=== PATIENT | female | born 1960 | race Caucasian/White ===

== ENCOUNTER → 2017-01-28 | Outpatient (CLI) | payer OTHER ==
--- NOTE | 2017-01-28 13:18 | REPMRS ---
Patient History The patient states she has not had a clinical breast exam in over a year. Patient is postmenopausal. Family history of breast cancer in paternal aunt at age 50 or over. Took hormonal contraceptives for 5 months. Digital Mammo Screening Bilat: January 28, 2017 - Exam #: [id number] Bilateral CC and MLO view(s) were taken. Technologist: Amira Lara, Technologist Prior study comparison: October 04, 2014, bilateral bilat screen digital mammo, performed at [facility] ([facility]). November 21, 2011, bilateral bilat screen digital mammo, performed at [facility]. FINDINGS: There are scattered fibroglandular densities. There has been no change in the appearance of the mammogram from the prior studies. There is a mild amount of residual fibroglandular tissue which is fairly symmetric. There is no interval development of dominant mass, architectural distortion, or clustered microcalcification suggestive of malignancy. ASSESSMENT: BI-RADS/ACR category 1 mammogram. Negative. Recommendation Routine screening mammogram in 1 year (for women over age 40). This mammogram was interpreted with the aid of an FDA-approved computer-aided dectection system. Electronically Signed By: Néstor William MD 01/28/17 0661
--- NOTE | 2017-01-28 13:30 | REP ---
Clinical: Lung screening. Technique: Axial noncontrast low-dose images using lung screening technique. Comparison: Chest CT dated 03/14/2006. Findings: Lung abdul are well-aerated minimal chronic scarring along the medial right middle lobe noted. There is a 4 mm noncalcified nodule abutting the left major fissure likely within the posterior aspect of the left upper lobe (image 51). No further consolidation, nodule or mass lesion. No pleural effusion. No pneumothorax. Mediastinum is grossly normal. Tracheobronchial tree is patent. Musculoskeletal structures are intact. Impression: Lung-RADS category II with 4 mm probably benign density in the posterior left upper lobe. 12-month follow-up examination is recommended. Signed by Dennys Zhu MD 01/28/2017 01:21 P
== END ==
LOC: M RAD 12:04
PROVIDERS: ATTEND Family Medicine
DX: Z12.31 Encounter for screening mammogram for malignant neoplasm of breast (principal)

== ENCOUNTER 2017-05-11 10:27 | Emergency (ER) | payer OTHER ==
[~2017-05-11] VITALS: Ht 160 cm; Wt 85.1 kg
[2017-05-11 10:28] VITALS: BP 179/82
[2017-05-11] MEDS ORDERED: METO1TAB7 PO (10:47)
[2017-05-11] MEDS ORDERED: AMLO5TAB2 PO (10:47)
[2017-05-11] MEDS ORDERED: ATOR1TAB19 PO (10:47)
[2017-05-11] MEDS ORDERED: OMEP40CA2 (10:47)
[2017-05-11] MEDS ORDERED: IBUP-1022 PO (10:47)
[2017-05-11] MEDS ORDERED: LOSA100T36 PO (10:47)
[2017-05-11] MEDS ORDERED: SERT-155 PO (10:47)
[2017-05-11] MEDS ORDERED: NORCO, ANEXSIA 5/325MG TABLET (HYDROcodone/ACETAMINOPHEN) PO ONE (11:00)
--- NOTE | 2017-05-11 11:30 | REP ---
Clinical: Pain and swelling . Technique: William scale and color Doppler evaluation using linear high frequency transducer. Findings: Ultrasound examination of the left lower extremity deep venous structures from the common femoral vein to the popliteal vein demonstrates normal compressibility flow and wave patterns in response to respiration and augmentation. There is no evidence for deep venous thrombosis. Impression: No evidence for deep venous thrombosis. Signed by Dennys Zhu MD 05/11/2017 11:21 A
--- NOTE | 2017-05-11 11:55 | REP ---
Clinical: Nontraumatic hip pain. Technique: AP view of the pelvis with neutral and frog lateral views of the left hip. Findings: No acute fracture dislocation. Mild degenerative changes to the bilateral hips includes increase sclerosis to the acetabular roof with associated joint space narrowing and subtle marginal spurring. Small calcified loose bodies adjacent to the greater trochanter noted bilaterally. Impression: Moderate degenerative changes. No acute fracture dislocation. Signed by Dennys Zhu MD 05/11/2017 11:47 A
[2017-05-11] MEDS ORDERED: IBUP80TA PO (11:59)
[2017-05-11] MEDS ORDERED: NORCOTAB PO (11:59)
== END 2017-05-11 12:11 | disposition home or self-care (01) ==
LOC: M ED 11:00
DX: M16.12 Unilateral primary osteoarthritis, left hip (principal); S73.102A Unspecified sprain of left hip, initial encounter; I10 Essential (primary) hypertension; K21.9 Gastro-esophageal reflux disease without esophagitis; F32.9 Major depressive disorder, single episode, unspecified; F17.210 Nicotine dependence, cigarettes, uncomplicated; X58.XXXA Exposure to other specified factors, initial encounter; Y92.9 Unspecified place or not applicable; Y99.9 Unspecified external cause status; Y93.9 Activity, unspecified; Z79.899 Other long term (current) drug therapy

== ENCOUNTER → 2017-05-28 | Day surgery (SDC) | payer OTHER ==
[~2017-05-28] VITALS: Ht 160 cm; Wt 82.6 kg
[~2017-05-28] MED LIST: ACETAMINOPHEN 325 MG TAB PO PRN; AMLO5TAB2 PO; ATOR1TAB19 PO; AcetaZOLAMIDE 500 MG ER CAP PO ONE; BSS with VANC/TOB/EPI for EYE CASES IR ONE; CYCLOPENTOLATE 2% OPHTH SOLN 2ML BTL OS ONE; HEALON DUET (HEALON 10MG/ML 0.55ML & HEALON ENDOCOAT 30MG/ML 0.85ML) As Ordered ONE; IBUP-1022 PO; IBUP80TA PO; KETOROLAC 0.5% OPHTH SOLN OS ONE; LIDOCAINE 1% SDV 5 ML VIAL As Ordered ONE; LIDOCAINE 4% INJ 5 ML AMP OU ONE; LOSA100T36 PO; LR 500 ML IV ONE; METO1TAB7 PO; MIDAZOLAM INJ 2 MG/2 ML VIAL (J2250) As Ordered ONE; MOXIFLOXACIN IN BSS 0.25MG/0.25ML INTRACAMERAL INJ (OR EYE ONLY)(J2280) As Ordered ONE; NORCOTAB PO; OFLOXACIN 0.3 % (OCUFLOX) OPTH SOL 5ML OS ONE; OMEP40CA2; PHENYLEPHRINE 2.5% OPHTH SOL 2ML OS ONE; POVIDONE-IODINE 5% OPHTH PREP SOL 30ML As Ordered ONE; PROPARACAINE 0.5% OPHTH SOL 15ML OS PRN; SERT-155 PO; TRIAMCINOLONE PRES FR 40 MG/ML 1ML(TRIESENCE)(OR EYE ONLY)(J3300 PER 1MG) As Ordered ONE; TRIMETHOBENZAMIDE 300 MG CAP PO PRN; TROPICAMIDE 1% OPHTH SOLN 2ML OS ONE
[2017-05-28 14:55] VITALS: BP 173/80
== END | disposition home or self-care (01) ==
LOC: M SDC 11:39
PROVIDERS: ATTEND Ophthalmology
DX: H25.9 Unspecified age-related cataract (principal); I10 Essential (primary) hypertension; E78.5 Hyperlipidemia, unspecified; K21.9 Gastro-esophageal reflux disease without esophagitis; F41.9 Anxiety disorder, unspecified; G47.30 Sleep apnea, unspecified; Z79.899 Other long term (current) drug therapy; F17.210 Nicotine dependence, cigarettes, uncomplicated

== ENCOUNTER 2017-06-23 10:23 | Day surgery (SDC) | payer OTHER ==
[~2017-06-23] VITALS: Ht 160 cm; Wt 83.0 kg
[~2017-06-23 10:23] MED LIST changes: -AcetaZOLAMIDE 500 MG ER CAP PO ONE; +CYCLOPENTOLATE 2% OPHTH SOLN 2ML BTL OD ONE; -CYCLOPENTOLATE 2% OPHTH SOLN 2ML BTL OS ONE; -KETOROLAC 0.5% OPHTH SOLN OS ONE; +LIDOCAINE 3.5 % 1ML OPHTH TOPICAL GEL OU ONE; -LIDOCAINE 4% INJ 5 ML AMP OU ONE; -LR 500 ML IV ONE; +OFLOXACIN 0.3 % (OCUFLOX) OPTH SOL 5ML OD ONE; -OFLOXACIN 0.3 % (OCUFLOX) OPTH SOL 5ML OS ONE; +PHENYLEPHRINE 2.5% OPHTH SOL 2ML OD ONE; -PHENYLEPHRINE 2.5% OPHTH SOL 2ML OS ONE; +PROPARACAINE 0.5% OPHTH SOL 15ML OD PRN; -PROPARACAINE 0.5% OPHTH SOL 15ML OS PRN; -TRIMETHOBENZAMIDE 300 MG CAP PO PRN; +TROPICAMIDE 1% OPHTH SOLN 2ML OD ONE; -TROPICAMIDE 1% OPHTH SOLN 2ML OS ONE
[2017-06-23] MEDS ORDERED: LR 1,000 ML IV ONE (10:30)
[2017-06-23] MEDS ORDERED: LIDOCAINE 1% SDV 5 ML VIAL SQ PRN (10:45)
[2017-06-23] MEDS ORDERED: fentaNYL 100 MCG/2 ML INJECTION (J3010) As Ordered ONE (13:37)
[2017-06-23] MEDS ORDERED: AcetaZOLAMIDE 500 MG ER CAP As Ordered ONE (14:28)
[2017-06-23 14:30] VITALS: BP 186/83
[2017-06-23] MEDS ORDERED: TRIMETHOBENZAMIDE 300 MG CAP PO PRN (14:45)
[2017-06-23] MEDS ORDERED: AcetaZOLAMIDE 500 MG ER CAP PO ONE (14:45)
[2017-06-23] MEDS ORDERED: KETOROLAC 0.5% OPHTH SOLN OD ONE (14:45)
== END 2017-06-23 15:01 | disposition home or self-care (01) ==
LOC: M SDC 10:23
PROVIDERS: ATTEND Ophthalmology
DX: H25.11 Age-related nuclear cataract, right eye (principal); I10 Essential (primary) hypertension; E78.5 Hyperlipidemia, unspecified; K21.9 Gastro-esophageal reflux disease without esophagitis; F41.9 Anxiety disorder, unspecified; Z79.899 Other long term (current) drug therapy; G47.30 Sleep apnea, unspecified; F17.210 Nicotine dependence, cigarettes, uncomplicated

== ENCOUNTER → 2017-08-27 | Outpatient (CLI) | payer OTHER ==
[~2017-08-27] MED LIST changes: -ACETAMINOPHEN 325 MG TAB PO PRN; -BSS with VANC/TOB/EPI for EYE CASES IR ONE; -CYCLOPENTOLATE 2% OPHTH SOLN 2ML BTL OD ONE; -HEALON DUET (HEALON 10MG/ML 0.55ML & HEALON ENDOCOAT 30MG/ML 0.85ML) As Ordered ONE; -LIDOCAINE 1% SDV 5 ML VIAL As Ordered ONE; -LIDOCAINE 3.5 % 1ML OPHTH TOPICAL GEL OU ONE; -MIDAZOLAM INJ 2 MG/2 ML VIAL (J2250) As Ordered ONE; -MOXIFLOXACIN IN BSS 0.25MG/0.25ML INTRACAMERAL INJ (OR EYE ONLY)(J2280) As Ordered ONE; -OFLOXACIN 0.3 % (OCUFLOX) OPTH SOL 5ML OD ONE; -PHENYLEPHRINE 2.5% OPHTH SOL 2ML OD ONE; -POVIDONE-IODINE 5% OPHTH PREP SOL 30ML As Ordered ONE; -PROPARACAINE 0.5% OPHTH SOL 15ML OD PRN; -TRIAMCINOLONE PRES FR 40 MG/ML 1ML(TRIESENCE)(OR EYE ONLY)(J3300 PER 1MG) As Ordered ONE; -TROPICAMIDE 1% OPHTH SOLN 2ML OD ONE
--- NOTE | 2017-08-28 02:07 | REP ---
Clinical: Sacrococcygeal pain. Technique: Cephalic and caudal angled AP views with lateral view. Findings: The sacrum and coccyx appear relatively normal for age. No acute fracture / subluxation or significant degenerative changes are appreciated. No obvious congenital abnormality noted. Impression: Normal appearance of the sacrum and coccyx. Signed by Dennys Zhu MD 08/28/2017 01:59 A
== END ==
LOC: M RAD 11:01
PROVIDERS: ATTEND Family Medicine
DX: M53.3 Sacrococcygeal disorders, not elsewhere classified (principal)

== ENCOUNTER → 2017-12-22 | Outpatient (REF) | payer OTHER ==
[2017-12-25 14:17] LABS: HPV HYBRID CAPTURE II Negative (Negative)
== END ==
LOC: M LAB REF 08:03
DX: Z01.419 Encounter for gynecological examination (general) (routine) without abnormal findings (principal)

== ENCOUNTER → 2017-12-31 | Outpatient (CLI) | payer OTHER ==
[2017-12-31 13:40] LABS: BASO % 0.3 % (0.0-1.0); EOS # 0.1 10^3/uL (0.0-0.50); EOS % 1.7 % (0.0-3.0); HEMATOCRIT 40.8 % (36.0-47.0); HEMOGLOBIN 13.6 g/dl (12.0-16.0); IMMATURE GRANULOCYTE % 0.2 % (0-3.0); LYMPH # 3.1 10^3/uL (1.5-4.5); LYMPH % 47.6 % (24.0-44.0); MEAN CORPUSCULAR HEMOGLOBIN 28.9 pg (27.0-33.0); MEAN CORPUSCULAR HGB CONC 33.3 g/dl (32.0-36.5); MEAN CORPUSCULAR VOLUME 86.8 fl (80.0-96.0); MONO # 0.6 10^3/uL (0.0-0.8); NEUTROPHILS # 2.7 10^3/uL (1.8-7.7); NEUTROPHILS % 41.2 % (36.0-66.0); PLATELET COUNT, AUTOMATED 180 10^3/uL (150-450); RED CELL DISTRIBUTION WIDTH 12.9 % (11.5-14.5); WHITE BLOOD COUNT 6.6 10^3/uL (4.0-10.0)
[2017-12-31 13:58] LABS: TOTAL 25(OH) VITAMIN D 11.7 NG/ML (30.0-100.0)
[2017-12-31 15:03] LABS: ALBUMIN/GLOBULIN RATIO 1.11 (1.00-1.93); ALKALINE PHOSPHATASE 74 U/L (45-117); ALT/SGPT 21 U/L (12-78); ANION GAP 6 MEQ/L (8-16); AST/SGOT 15 U/L (7-37); BILIRUBIN,TOTAL 0.3 MG/DL (0.2-1.0); BLOOD UREA NITROGEN 14 MG/DL (7-18); CALCIUM LEVEL 9.4 MG/DL (8.5-10.1); CARBON DIOXIDE LEVEL 28 MEQ/L (21-32); CHLORIDE LEVEL 107 MEQ/L (98-107); CHOLESTEROL LEVEL 216 MG/DL (<200); CHOLESTEROL RISK RATIO 7.714 (<5); CREATININE FOR GFR 0.86 MG/DL (0.55-1.30); GLOMERULAR FILTRATION RATE > 60.0 (>51); GLUCOSE, FASTING 94 MG/DL (70-100); HDL CHOLESTEROL 28 MG/DL (>40); NON-HDL-C 188 MG/DL; SODIUM LEVEL 141 MEQ/L (136-145); TOTAL PROTEIN 7.6 GM/DL (6.4-8.2); TRIGLYCERIDES LEVEL 539 MG/DL (<150)
== END ==
LOC: M WUC 09:00
DX: E55.9 Vitamin D deficiency, unspecified (principal); I10 Essential (primary) hypertension
CPT/HCPCS: 84443

== ENCOUNTER → 2018-01-29 | Outpatient (CLI) | payer OTHER | LOC: M RAD 09:56 | DX: Z87.891 Personal history of nicotine dependence (principal); R91.8 Other nonspecific abnormal finding of lung field | CPT/HCPCS: G0297 ==

== ENCOUNTER → 2018-08-05 | Outpatient (CLI) | payer OTHER | LOC: M WUC 11:35 | DX: S16.1XXA Strain of muscle, fascia and tendon at neck level, initial encounter (principal); M50.222 Other cervical disc displacement at C5-C6 level; M50.223 Other cervical disc displacement at C6-C7 level; X58.XXXA Exposure to other specified factors, initial encounter; Y92.9 Unspecified place or not applicable | CPT/HCPCS: 72052 ==

== ENCOUNTER → 2018-08-21 | Outpatient (REF) | payer OTHER | LOC: M LAB REF 12:53 | DX: R35.0 Frequency of micturition (principal) | CPT/HCPCS: 87186 ==

== ENCOUNTER → 2018-10-07 | Outpatient (CLI) | payer OTHER | LOC: M RAD 08:58 | DX: R93.0 Abnormal findings on diagnostic imaging of skull and head, not elsewhere classified (principal); H71.02 Cholesteatoma of attic, left ear | CPT/HCPCS: 70480 ==

== ENCOUNTER → 2018-11-23 | Outpatient (CLI) | payer OTHER ==
[~2018-11-23] MED LIST changes: -AMLO5TAB2 PO; +AMLO5TAB6 PO; +AMOX875T2 PO; +DICL13PA TOP; +GABA-843 PO; -LOSA100T36 PO; +LOSA100T50 PO; +METO1TAB33 PO; +NICO21PAT TD; +OMEP40CA2 PO; +SERT50TA PO; +TIZA-208 PO; +VITA500055 PO
[2018-11-23 12:59] LABS: BASO % 0.5 % (0.0-1.0); EOS # 0.2 10^3/uL (0.0-0.50); EOS % 2.1 % (0.0-3.0); HEMATOCRIT 43.3 % (36.0-47.0); LYMPH # 3.3 10^3/uL (1.5-4.5); MEAN CORPUSCULAR HEMOGLOBIN 28.2 pg (27.0-33.0); MEAN CORPUSCULAR HGB CONC 32.3 g/dl (32.0-36.5); MEAN CORPUSCULAR VOLUME 87.1 fl (80.0-96.0); MONO # 0.7 10^3/uL (0.0-0.8); MONO % 7.8 % (0.0-5.0); NEUTROPHILS # 4.4 10^3/uL (1.8-7.7); NEUTROPHILS % 51.3 % (36.0-66.0); PLATELET COUNT, AUTOMATED 212 10^3/uL (150-450); RED BLOOD COUNT 4.97 10^6/uL (4.00-5.40); WHITE BLOOD COUNT 8.6 10^3/uL (4.0-10.0)
[2018-11-23 13:08] LABS: ALBUMIN 3.9 GM/DL (3.2-5.2); ALT/SGPT 20 U/L (12-78); BILIRUBIN,TOTAL 0.3 MG/DL (0.2-1.0); BLOOD UREA NITROGEN 16 MG/DL (7-18); CALCIUM LEVEL 9.1 MG/DL (8.5-10.1); CARBON DIOXIDE LEVEL 24 MEQ/L (21-32); CHLORIDE LEVEL 105 MEQ/L (98-107); CHOLESTEROL LEVEL 254 MG/DL (<200); CHOLESTEROL RISK RATIO 9.769 (<5); CREATININE FOR GFR 1.07 MG/DL (0.55-1.30); GLOMERULAR FILTRATION RATE 55.9 (>51); GLUCOSE, FASTING 98 MG/DL (70-100); HDL CHOLESTEROL 26 MG/DL (>40); NON-HDL-C 228 MG/DL; POTASSIUM SERUM 4.4 MEQ/L (3.5-5.1); SODIUM LEVEL 142 MEQ/L (136-145); TOTAL PROTEIN 7.5 GM/DL (6.4-8.2); TRIGLYCERIDES LEVEL 699 MG/DL (<150)
== END ==
LOC: M WUC 09:38
PROVIDERS: ATTEND Physician Assistant
DX: I10 Essential (primary) hypertension (principal)

== ENCOUNTER 2019-01-15 08:12 | Day surgery (SDC) | payer OTHER ==
[~2019-01-15] VITALS: Ht 160 cm; Wt 93.4 kg
[~2019-01-15 08:12] MED LIST changes: +DRIS50003 PO; +SIMV5TAB12 PO
[2019-01-15] MEDS ORDERED: LIDOCAINE W/EPINEPHRINE 1% 20ML VIAL As Ordered ONE (10:01)
[2019-01-15] MEDS ORDERED: METHYLENE BLUE 0.5% (5MG/ML) 10 ML AMP (PROVAYBLUE)(Q9968 PER 1MG) As Ordered ONE (10:01)
[2019-01-15] MEDS ORDERED: CIPRODEX OTIC SUSP 7.5ML As Ordered ONE (10:01)
[2019-01-15] MEDS ORDERED: OXYMETAZOLINE NASAL SPRAY (AFRIN) As Ordered ONE (10:02)
[2019-01-15] MEDS ORDERED: dexameTHASONE 4 MG/ML 1ML VIAL (J1100) As Ordered ONE ×2 (11:58→12:12)
[2019-01-15] MEDS ORDERED: LIDOCAINE 2% INJ 100 MG/5 ML SDV (FOR ANES.) As Ordered ONE (11:58)
[2019-01-15] MEDS ORDERED: MIDAZOLAM INJ 2 MG/2 ML VIAL (J2250) As Ordered ONE (11:58)
[2019-01-15] MEDS ORDERED: ONDANSETRON 4MG/2ML VIAL (J2405) As Ordered ONE (11:58)
[2019-01-15] MEDS ORDERED: PROPOFOL 200 MG/20 ML VIAL As Ordered ONE (11:58)
[2019-01-15] MEDS ORDERED: ROCURONIUM BROMIDE 50 MG/5 ML VIAL As Ordered ONE ×3 (11:58→12:26)
[2019-01-15] MEDS ORDERED: fentaNYL 250 MCG/5 ML INJECTION (J3010) As Ordered ONE (11:58)
[2019-01-15] MEDS ORDERED: ePHEDrine SULFATE 25 MG/5 ML(5MG/ML) SYRINGE As Ordered ONE (12:00)
[2019-01-15] MEDS ORDERED: fentaNYL 100 MCG/2 ML INJECTION (J3010) As Ordered ONE (12:26)
[2019-01-15] MEDS ORDERED: SUGAMMADEX SODIUM 500 MG/5 ML VIAL (BRIDION) As Ordered ONE (12:29)
[2019-01-15] MEDS ORDERED: fentaNYL 100 MCG/2 ML INJECTION (J3010) IV PRN (13:45)
[2019-01-15] MEDS ORDERED: HYDROMORPHONE HCL 0.5 MG/ 0.5 ML SYRINGE (J1170 PER 1) IV PRN (13:45)
[2019-01-15] MEDS ORDERED: LIDOCAINE VISCOUS 2% SOLN 15ML UDC As Ordered ONE (15:22)
--- NOTE | 2019-01-15 15:25 | RO ---
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 OPERATION PERFORMED 1. Micro suspension laryngoscopy with excision of large approximately 3-4 cm vallecular cyst primarily on the right side. 2. Shaving of the lingual tonsils utilizing the Coblator device. 3. Bilateral eustachian tube balloon dilation with the AERA Acclarent balloon device. 4. Bilateral myringotomy and tube placement with Paparella ventilation tubes. SURGEON: Dr. Cirilo Worley. GUITAR REPAIR TECHNICIAN: ANESTHESIA: General endotracheal tube. DESCRIPTION OF PROCEDURE: With the patient in supine position after being induced and intubated, prepped and draped in the usual fashion, the patient initially was prepped and draped for the eustachian tube balloon dilation. The nasal cavity was decongested with topical Afrin. A pediatric 30 degrees endoscope along with the AERA eustachian tube balloon device was utilized. The right torus tubarius was cannulated without difficulty. There was prominent tonsils of Chandler and some adenoid tissue present. The balloon was deployed to the yellow marking without resistance and then dilated to 12 cm 6 joules for 2 minutes. In a similar fashion the left side was also done transnasally as well. Once this was done, the patient was changed over to bilateral myringotomy and tube placement. Initially, the right side was done. The speculum was placed in the ear canal. An anterior superior incision was created and then a Paparella Type 1 ventilation tube was placed. It should be noted that there was weakness of the posterior superior area that had ballooned forward and these were decompressed. Ciprodex drops were placed. A cotton ball was placed in the meatal opening. In a similar fashion, left side anterior superior incision was made and suctioned and then the posterior superior ballooning of the tympanic membrane (TM) receded, and the tube was placed. Ciprodex drops were placed as well. At this point, attention then was drawn to turning her 90 degrees and sent for microsuspension laryngoscopy where a Kyler-Storz was placed to view the vallecula. There was a very large 3-4 cm soft vallecular cyst that had been seen previously. This was carefully dissected with the microlaryngeal scissors and alligator for retraction. Most of it was resected off and appeared to be mainly attached to the lingual surface of the epiglottis and in the base of the epiglottis but not anteriorly. Once this was dissected and cleared, there was a small rupture posterior, inferiorly, medially and this was cultured aerobic, anaerobic. The rest of the cyst was completely removed but was partially decompressed at this site. Then the wound was copiously irrigated. pledgets with Afrin were placed in the area. The patient then was changed over to a Jose Rafael mouth gag with a large grooved tongue blade where partial lingual tonsillectomy was done utilizing a Coblator EVAC 70 wand creating a grooved in the center. This was shave down the midline of the base of the tongue to create an area for her to channel and breathe. She tolerated this well. Cautery settings of 3 was used on the coag setting of the Coblator and coblation setting was 7. Once bleeding was controlled and the vallecula was evaluated, the Kyler scope was placed back in and any areas that required cauterization was done with the Kyler scope. At this point all bleeding had stopped the microscope which had been used with the Kyler after the patient had been placed in suspension was all removed after the laryngotracheal anesthesia was placed. At this point the patient was awakened, which I observed and there was no apneic episodes, just snoring. Also observing in the waiting area, the patient had rhythmic snoring with no apneic episodes without a mask. Estimated blood loss was approximately 5 mL. There was no complications.
[2019-01-15] MEDS ORDERED: LIDOCAINE VISCOUS 2% SOLN 15ML UDC MT PRN (15:30)
[2019-01-15 16:29] VITALS: BP 140/66
== END 2019-01-15 16:35 | disposition home or self-care (01) ==
LOC: M SDC 08:12
PROVIDERS: ATTEND Otolaryngology
DX: J38.7 Other diseases of larynx (principal); H69.93 Unspecified Eustachian tube disorder, bilateral; J35.1 Hypertrophy of tonsils; G47.33 Obstructive sleep apnea (adult) (pediatric); I10 Essential (primary) hypertension; M12.9 Arthropathy, unspecified; E78.2 Mixed hyperlipidemia; K21.9 Gastro-esophageal reflux disease without esophagitis; F17.210 Nicotine dependence, cigarettes, uncomplicated; L98.8 Other specified disorders of the skin and subcutaneous tissue; F41.9 Anxiety disorder, unspecified; F32.1 Major depressive disorder, single episode, moderate; R51 Headache; Z79.899 Other long term (current) drug therapy; Z78.0 Asymptomatic menopausal state; Z96.1 Presence of intraocular lens; Z98.41 Cataract extraction status, right eye; Z98.42 Cataract extraction status, left eye
CPT/HCPCS: 31535; 42870; 69436; 69799; 87070; 87075; 87076; 87077; 87186; 88305; J1100; J2250; J2405; J3010; Q9968

== ENCOUNTER → 2019-02-10 | Outpatient (CLI) | payer OTHER ==
[~2019-02-10] MED LIST changes: +HYDR-3715 PO; -NORCOTAB PO; +SERT-141 PO; -SERT50TA PO; -TIZA-208 PO; +TIZA4TAB4 PO
--- NOTE | 2019-02-10 13:46 | REP ---
RIGHT ANKLE, FOUR VIEWS: HISTORY: Pain. There is a nondisplaced fracture of the distal fibula. There is no dislocation. The joint space is normal in appearance. Soft tissue swelling is present. IMPRESSION: Nondisplaced fracture of the distal fibula. Electronically Signed by Rigo Yañez MD 02/10/2019 01:48 P
--- NOTE | 2019-02-10 13:56 | REP ---
RIGHT FOOT, FOUR VIEWS: HISTORY: Pain. There is no acute fracture or dislocation. There is narrowing of the first metatarsal phalangeal joint space. The remaining joint spaces are normal in appearance. Soft tissue swelling is present at the ankle. IMPRESSION: There is no acute fracture or dislocation. Electronically Signed by Rigo Yañez MD 02/10/2019 01:58 P
== END ==
LOC: M WUC 12:27
PROVIDERS: ATTEND Physician Assistant
DX: M25.571 Pain in right ankle and joints of right foot (principal)

== ENCOUNTER → 2019-02-22 | Outpatient (CLI) | payer OTHER ==
--- NOTE | 2019-02-22 11:02 | REP ---
Low-dose lung screening CT: Comparisons are 01/29/2018 and 01/28/2017. The study is performed without IV contrast. Images are presented at lung windowing only. There is a 4 mm nodule in the left lower lobe on image 54, unchanged from both prior studies. There is a faintly visible ground-glass density in the right lower lobe on image 68, unchanged from both prior studies. There is a faintly visible ground-glass density in the right lower lobe on image 79, unchanged from both prior studies. No new nodules or masses are identified. There are no infiltrates or effusions. Impression: The above the lesions are all category II lung lesions. The probability of malignancy is less than 1%. Depending there is factors, low-dose lung screening CT is recommended annually. Electronically Signed by Néstor Pradhan MD 02/22/2019 10:53 A
== END ==
LOC: M RAD 09:18
PROVIDERS: ATTEND Family Medicine
DX: D14.1 Benign neoplasm of larynx (principal); F17.210 Nicotine dependence, cigarettes, uncomplicated

== ENCOUNTER → 2019-06-29 | Outpatient (REF) | payer OTHER | LOC: M LAB REF 13:21 | PROVIDERS: ATTEND Physician Assistant | DX: R30.9 Painful micturition, unspecified (principal) ==

== ENCOUNTER → 2019-09-25 | Outpatient (CLI) | payer OTHER ==
[~2019-09-25] MED LIST changes: -OMEP40CA2; -OMEP40CA2 PO; +OMEP40CA97; +OMEP40CA97 PO; -SERT-155 PO; +SERT50TA29 PO
[2019-09-25 13:31] LABS: ALT/SGPT 21 U/L (12-78); BILIRUBIN,TOTAL 0.4 MG/DL (0.2-1.0); BLOOD UREA NITROGEN 20 MG/DL (7-18); CALCIUM LEVEL 9.5 MG/DL (8.8-10.2); CARBON DIOXIDE LEVEL 28 MEQ/L (21-32); CHLORIDE LEVEL 106 MEQ/L (98-107); CHOLESTEROL LEVEL 238 MG/DL (<200); CHOLESTEROL RISK RATIO 8.206 (<5); CREATININE FOR GFR 1.21 MG/DL (0.55-1.30); GLOMERULAR FILTRATION RATE 48.3 (>45); GLUCOSE, FASTING 105 MG/DL (70-100); HDL CHOLESTEROL 29 MG/DL (>40); NON-HDL-C 209 MG/DL; POTASSIUM SERUM 4.4 MEQ/L (3.5-5.1); SODIUM LEVEL 141 MEQ/L (136-145); TOTAL PROTEIN 7.5 GM/DL (6.4-8.2); TRIGLYCERIDES LEVEL 666 MG/DL (<150)
== END ==
LOC: M WUC 08:29
PROVIDERS: ATTEND Physician Assistant
DX: E78.2 Mixed hyperlipidemia (principal)

== ENCOUNTER → 2020-03-03 | Outpatient (CLI) | payer OTHER ==
--- NOTE | 2020-03-03 15:59 | REP ---
REASON FOR EXAM: Followup. Patient has history of tobacco abuse. All priors were reviewed, latest 02/22/2019, also, lung screening chest CT. Prior exam showed Lung-RADS category 2 nodules. As per the protocol, only lung window images were sent to the read station for interpretation. No new abnormal nodules, masses, or opacities have developed. The lung abdul are unchanged. Grossly, the mediastinum and pulmonary alison are unchanged. Grossly, the imaged upper abdomen and imaged osseous structures are unchanged. IMPRESSION: Stable CT chest. Lung-RADS category 2 exam. Electronically Signed by Beto Eaton DO 03/03/2020 04:03 P
== END ==
LOC: M RAD 10:26
PROVIDERS: ATTEND Family Medicine
DX: F17.210 Nicotine dependence, cigarettes, uncomplicated (principal); Z12.2 Encounter for screening for malignant neoplasm of respiratory organs

== ENCOUNTER → 2020-07-25 | Outpatient (CLI) | payer OTHER ==
[~2020-07-25] MED LIST changes: +AMLO1TAB24 PO; -AMLO5TAB6 PO
[2020-07-25 12:13] LABS: ALBUMIN 3.8 GM/DL (3.2-5.2); ALT/SGPT 26 U/L (12-78); BILIRUBIN,TOTAL 0.3 MG/DL (0.2-1.0); BLOOD UREA NITROGEN 15 MG/DL (7-18); CALCIUM LEVEL 9.2 MG/DL (8.8-10.2); CARBON DIOXIDE LEVEL 31 MEQ/L (21-32); CHLORIDE LEVEL 105 MEQ/L (98-107); CHOLESTEROL LEVEL 248 MG/DL (<200); CREATININE FOR GFR 1.25 MG/DL (0.55-1.30); GLOMERULAR FILTRATION RATE 46.4 (>45); GLUCOSE, FASTING 120 MG/DL (70-100); HDL CHOLESTEROL 31 MG/DL (>40); NON-HDL-C 217 MG/DL; POTASSIUM SERUM 4.9 MEQ/L (3.5-5.1); SODIUM LEVEL 138 MEQ/L (136-145); TOTAL PROTEIN 7.5 GM/DL (6.4-8.2); TRIGLYCERIDES LEVEL 655 MG/DL (<150)
== END ==
LOC: M WUC 08:09
PROVIDERS: ATTEND Physician Assistant Medical
DX: E78.2 Mixed hyperlipidemia (principal)

== ENCOUNTER → 2020-10-21 | Outpatient (CLI) | payer OTHER ==
--- NOTE | 2020-10-23 15:31 | SLEEPCENT ---
NOCTURNAL POLYSOMNOGRAPHY CPAP TITRATION DATE: 10/21/2020 ORDERED BY: Dinora Hawkins NP Nocturnal polysomnography was performed for the titration of pressure therapy in this patient with severe obstructive sleep apnea syndrome. For testing, the patient was fit with a ResMed AirFit F20 full face mask of medium size was used, 11 cm of water pressure were applied to the circuit, and the lights were extinguished. 8 hours and 17 minutes of data were reviewed. There were 283.5 minutes of sleep identified. Sleep latency was prolonged at 40.5 minutes. REM latency was prolonged at 276.5 minutes. Sleep architecture improved late in the study. Throughout most of the test severe fragmentation was seen. Overall sleep efficiency was 57.9%. The electrocardiogram showed a wandering baseline with a sinus rhythm with an average heart rate of 58 beats per minute. EEG showed fairly normal waveforms for wake and sleep. Persistent of respiratory events prompted an increase in CPAP pressure despite optimal mask fit and a minimal air leak. The patient was changed to a BiLevel device. Best sleep was seen at the very end of the study on an inspiratory pressure of 20 over expiratory pressure of 15 with which pressure, the patient slept through REM without respiratory event or oxygen desaturation. IMPRESSION: Obstructive sleep apnea syndrome (G47.33). RECOMMENDATION: Nightly use of pressure therapy via BiLevel device with inspiratory pressure 21 over expiratory pressure of 15. Dr. Lorenzo
== END ==
LOC: M SLEEP 20:00
PROVIDERS: ATTEND Nurse Practitioner Adult Health
DX: G47.33 Obstructive sleep apnea (adult) (pediatric) (principal)

== ENCOUNTER → 2020-11-06 | Outpatient (REF) | payer OTHER | LOC: M LAB REF 13:44 | PROVIDERS: ATTEND Ophthalmology | DX: D23.10 Other benign neoplasm of skin of unspecified eyelid, including canthus (principal) ==

== ENCOUNTER → 2021-01-17 | Outpatient (REF) | payer OTHER ==
[~2021-01-17] MED LIST changes: +GABA-282 PO; -GABA-843 PO
== END ==
LOC: M LAB REF 17:56
PROVIDERS: ATTEND Physician Assistant Medical
DX: Z12.4 Encounter for screening for malignant neoplasm of cervix (principal)

== ENCOUNTER → 2021-02-05 | Outpatient (CLI) | payer OTHER ==
--- NOTE | 2021-02-05 10:54 | REPMRS ---
Patient History The patient states she had a clinical breast exam in 01/2021 Patient is postmenopausal. Family history of breast cancer at age 50 or over in paternal aunt. Took hormonal contraceptives for 5 months. Digital Woman Screen Mammo: February 05, 2021 - Exam #: [id number] Bilateral CC and MLO view(s) were taken. Technologist: Gemma Segura, Technologist Prior study comparison: August 06, 2019, bilateral digital mammo screening bilat, performed at [facility]. January 29, 2018, bilateral digital mammo screening bilat, performed at [facility]. January 28, 2017, bilateral digital mammo screening bilat, performed at [facility]. FINDINGS: There are scattered fibroglandular densities. The Volpara volumetric breast density category is:B. There has been no change in the appearance of the mammogram from the prior studies. There is a mild amount of scattered fibroglandular density which is fairly symmetric. There is no interval development of dominant mass, architectural distortion, or grouped microcalcification suggestive of malignancy. 3-D tomosynthesis shows no additional findings. Assessment: BI-RADS/ACR category 1 mammogram. Negative Mammogram. Recommendation Routine screening mammogram of both breasts in 1 year (for women over age 40). This patient's [facility] Lifetime Breast Cancer Risk is estimated at 6.3 %. This mammogram was interpreted with the aid of an FDA-approved computer-aided dectection system. Electronically Signed By: Rodger Vega MD 02/05/21 0771
== END ==
LOC: M WHC 09:55
PROVIDERS: ATTEND Family Medicine
DX: Z12.31 Encounter for screening mammogram for malignant neoplasm of breast (principal); Z80.3 Family history of malignant neoplasm of breast; Z78.0 Asymptomatic menopausal state

== ENCOUNTER → 2021-03-26 | Outpatient (CLI) | payer OTHER ==
[2021-03-26 17:05] LABS: CALCIUM LEVEL 9.2 MG/DL (8.8-10.2); CREATININE FOR GFR 1.46 MG/DL (0.55-1.30); GLOMERULAR FILTRATION RATE 38.8 (>45); POTASSIUM SERUM 3.8 MEQ/L (3.5-5.1); THYROID STIMULATING HORMONE 1.25 uIU/ML (0.358-3.740)
[2021-03-26 17:38] LABS: HEMOGLOBIN A1c 6.3 %
== END ==
LOC: M WUC 14:26
PROVIDERS: ATTEND Nurse Practitioner Family
DX: R55 Syncope and collapse (principal)

== ENCOUNTER → 2021-04-13 | Outpatient (CLI) | payer OTHER ==
--- NOTE | 2021-04-13 09:48 | REP ---
INDICATION: NICOTINE DEPEND. COMPARISON: Multiple the latest 03/03/2020 TECHNIQUE: Axial noncontrast images from the thoracic inlet to the upper abdomen using low-dose lung screening technique (LDCT). As per the protocol only lung window images were sent to the read station for interpretation. FINDINGS: No new abnormal nodules, masses, or opacities have developed. Grossly, the mediastinum and pulmonary alison are unchanged. Grossly, the imaged upper abdomen and imaged osseous structures are unchanged. IMPRESSION: Stable lung rads category 2 low-dose screening CT examination of the lungs. <Electronically signed by Beto Eaton > 04/13/21 0930
== END ==
LOC: M RAD 09:25
PROVIDERS: ATTEND Nurse Practitioner Family
DX: Z12.2 Encounter for screening for malignant neoplasm of respiratory organs (principal); F17.210 Nicotine dependence, cigarettes, uncomplicated

== ENCOUNTER → 2021-05-11 | Outpatient (CLI) | payer OTHER ==
[~2021-05-11] MED LIST changes: +OMEP40CA4; +OMEP40CA4 PO; -OMEP40CA97; -OMEP40CA97 PO
--- NOTE | 2021-05-11 10:35 | REP ---
INDICATION: PAIN COMPARISON: None. TECHNIQUE: Upright view of the chest with supine and upright views of the abdomen and pelvis. FINDINGS: Frontal upright view of the chest demonstrates no acute cardiopulmonary process or free air below the diaphragm to suspect pneumoperitoneum. Supine and upright views of the abdomen and pelvis demonstrate nonspecific bowel gas pattern without obstruction or perforation. No organomegaly. No abnormal calcifications. Skeletal structures normal for age. IMPRESSION: Nonspecific bowel gas pattern. <Electronically signed by Dennys Zhu > 05/11/21 1031
[2021-05-11 11:32] LABS: BASO % 0.5 % (0.0-1.0); EOS % 0.3 % (0.0-3.0); HEMATOCRIT 38.3 % (36.0-47.0); HEMOGLOBIN 12.5 g/dl (12.0-15.5); LYMPH # 0.6 10^3/uL (1.5-5.0); LYMPH % 10.7 % (24.0-44.0); MEAN CORPUSCULAR HEMOGLOBIN 27.8 pg (27.0-33.0); MEAN CORPUSCULAR HGB CONC 32.6 g/dl (32.0-36.5); MEAN CORPUSCULAR VOLUME 85.3 fl (80.0-96.0); MONO # 0.5 10^3/uL (0.0-0.8); MONO % 7.9 % (2.0-8.0); NEUTROPHILS # 4.7 10^3/uL (1.5-8.5); NEUTROPHILS % 80.1 % (36.0-66.0); PLATELET COUNT, AUTOMATED 137 10^3/uL (150-450); RED BLOOD COUNT 4.49 10^6/uL (4.00-5.40); WHITE BLOOD COUNT 5.8 10^3/uL (4.0-10.0)
[2021-05-11 12:07] LABS: BILIRUBIN,TOTAL 0.6 MG/DL (0.2-1.0); CALCIUM LEVEL 8.6 MG/DL (8.8-10.2); CREATININE FOR GFR 1.63 MG/DL (0.55-1.30); TOTAL PROTEIN 7.4 GM/DL (6.4-8.2)
== END ==
LOC: M WUC 09:56
PROVIDERS: ATTEND Physician Assistant
DX: R10.84 Generalized abdominal pain (principal); Z20.828 Contact with and (suspected) exposure to other viral communicable diseases

== ENCOUNTER → 2021-05-28 | Outpatient (REF) | payer OTHER | LOC: M LAB REF 17:01 | PROVIDERS: ATTEND Internal Medicine Nephrology | DX: E83.42 Hypomagnesemia (principal) ==

== ENCOUNTER → 2021-06-12 | Outpatient (CLI) | payer OTHER ==
[~2021-06-12] MED LIST changes: +LOSA100T45 PO; -LOSA100T50 PO; +TIZA10TA PO; -TIZA4TAB4 PO
== END ==
LOC: M RAD 07:35
PROVIDERS: ATTEND Internal Medicine Nephrology
DX: N18.32 Chronic kidney disease, stage 3b (principal); I15.0 Renovascular hypertension

== ENCOUNTER → 2021-07-10 | Outpatient (REF) | payer OTHER ==
[~2021-07-10] MED LIST changes: -LOSA100T45 PO; +LOSA100T50 PO; -TIZA10TA PO; +TIZA4TAB4 PO
== END ==
LOC: M LAB REF 11:56
PROVIDERS: ATTEND Internal Medicine Nephrology
DX: E83.42 Hypomagnesemia (principal)

== ENCOUNTER → 2021-09-20 | Outpatient (CLI) | payer OTHER ==
[2021-09-20 14:27] LABS: HEMOGLOBIN A1c 6.2 %
[2021-09-20 14:50] LABS: ALBUMIN 3.9 GM/DL (3.2-5.2); ALT/SGPT 22 U/L (12-78); BILIRUBIN,TOTAL 0.4 MG/DL (0.2-1.0); BLOOD UREA NITROGEN 17 MG/DL (7-18); CARBON DIOXIDE LEVEL 28 MEQ/L (21-32); CHLORIDE LEVEL 107 MEQ/L (98-107); CHOLESTEROL LEVEL 256 MG/DL (<200); CHOLESTEROL RISK RATIO 10.666 (<5); CREATININE FOR GFR 1.52 MG/DL (0.55-1.30); GLOMERULAR FILTRATION RATE 36.9 (>45); GLUCOSE, FASTING 105 MG/DL (70-100); HDL CHOLESTEROL 24 MG/DL (>40); NON-HDL-C 232 MG/DL; POTASSIUM SERUM 4.3 MEQ/L (3.5-5.1); SODIUM LEVEL 139 MEQ/L (136-145); TOTAL PROTEIN 7.4 GM/DL (6.4-8.2); TRIGLYCERIDES LEVEL 919 MG/DL (<150)
== END ==
LOC: M WUC 09:55
PROVIDERS: ATTEND Nurse Practitioner Family
DX: I10 Essential (primary) hypertension (principal); E78.2 Mixed hyperlipidemia; R73.03 Prediabetes

== ENCOUNTER → 2021-12-11 | Outpatient (CLI) | payer OTHER ==
[~2021-12-11] MED LIST changes: +LOSA100T45 PO; -LOSA100T50 PO; +TIZA10TA PO; -TIZA4TAB4 PO
== END ==
LOC: M PLAIMG 11:16
PROVIDERS: ATTEND Nurse Practitioner Family
DX: J44.9 Chronic obstructive pulmonary disease, unspecified (principal)

== ENCOUNTER → 2022-02-22 | Outpatient (CLI) | payer OTHER | LOC: M WHC 10:45 | PROVIDERS: ATTEND Nurse Practitioner Family | DX: Z12.31 Encounter for screening mammogram for malignant neoplasm of breast (principal) ==

== ENCOUNTER → 2022-03-01 | Outpatient (CLI) | payer OTHER ==
[2022-03-01 12:54] LABS: BASO % 0.5 % (0.0-1.0); EOS # 0.2 10^3/uL (0.0-0.5); EOS % 1.8 % (0.0-3.0); HEMATOCRIT 37.7 % (36.0-47.0); HEMOGLOBIN 12.2 g/dl (12.0-15.5); LYMPH # 2.6 10^3/uL (1.5-5.0); LYMPH % 31.8 % (24.0-44.0); MEAN CORPUSCULAR HEMOGLOBIN 27.4 pg (27.0-33.0); MEAN CORPUSCULAR HGB CONC 32.4 g/dl (32.0-36.5); MEAN CORPUSCULAR VOLUME 84.7 fl (80.0-96.0); MONO # 0.8 10^3/uL (0.0-0.8); MONO % 10.1 % (2.0-8.0); NEUTROPHILS # 4.6 10^3/uL (1.5-8.5); NEUTROPHILS % 55.4 % (36.0-66.0); PLATELET COUNT, AUTOMATED 185 10^3/uL (150-450); RED BLOOD COUNT 4.45 10^6/uL (4.00-5.40); WHITE BLOOD COUNT 8.3 10^3/uL (4.0-10.0)
[2022-03-01 13:14] LABS: ALT/SGPT 23 U/L (12-78); BILIRUBIN,TOTAL 0.6 MG/DL (0.2-1.0); BLOOD UREA NITROGEN 23 MG/DL (7-18); CALCIUM LEVEL 9.3 MG/DL (8.8-10.2); CARBON DIOXIDE LEVEL 26 MEQ/L (21-32); CHLORIDE LEVEL 109 MEQ/L (98-107); CHOLESTEROL LEVEL 162 MG/DL (<200); CREATININE FOR GFR 1.46 MG/DL (0.55-1.30); FERRITIN 34 NG/ML (8-252); FREE T4 0.97 NG/DL (0.76-1.46); GLOMERULAR FILTRATION RATE 38.6 (>45); GLUCOSE, FASTING 90 MG/DL (70-100); HDL CHOLESTEROL 27 MG/DL (>40); IRON (FE) 57 UG/DL (50-170); NON-HDL-C 135 MG/DL; PERCENT SATURATION 14.4 % (13.2-45.0); SODIUM LEVEL 141 MEQ/L (136-145); TOTAL 25(OH) VITAMIN D 33.2 NG/ML (30.0-100.0); TOTAL IRON BINDING CAPACITY 397 UG/DL (250-450); TOTAL PROTEIN 7.4 GM/DL (6.4-8.2); TRIGLYCERIDES LEVEL 520 MG/DL (<150)
[2022-03-01 13:37] LABS: HEMOGLOBIN A1c 5.9 %
== END ==
LOC: M WUC 10:15
PROVIDERS: ATTEND Nurse Practitioner Family
DX: R53.83 Other fatigue (principal); I10 Essential (primary) hypertension; E78.2 Mixed hyperlipidemia; R73.03 Prediabetes

== ENCOUNTER → 2022-03-13 | Outpatient (CLI) | payer OTHER ==
[2022-03-13 20:23] LABS: ALBUMIN 4.2 GM/DL (3.2-5.2); CALCIUM LEVEL 10.1 MG/DL (8.8-10.2); CREATININE FOR GFR 1.42 MG/DL (0.55-1.30); GLOMERULAR FILTRATION RATE 39.9 (>45); PHOSPHORUS LEVEL 4.7 MG/DL (2.5-4.9); POTASSIUM SERUM 4.6 MEQ/L (3.5-5.1); URIC ACID 8.6 MG/DL (2.6-6.0)
== END ==
LOC: M WUC 10:39
PROVIDERS: ATTEND Physician Assistant
DX: M19.071 Primary osteoarthritis, right ankle and foot (principal); M79.671 Pain in right foot; M25.572 Pain in left ankle and joints of left foot

== ENCOUNTER → 2022-05-21 | Outpatient (REF) | payer OTHER ==
[2022-05-21 20:51] LABS: POTASSIUM SERUM 3.6 MEQ/L (3.5-5.1)
== END ==
LOC: M LAB REF 18:01
PROVIDERS: ATTEND Internal Medicine Nephrology
DX: I12.9 Hypertensive chronic kidney disease with stage 1 through stage 4 chronic kidney disease, or unspecified chronic kidney disease (principal); N28.1 Cyst of kidney, acquired; N18.32 Chronic kidney disease, stage 3b

== ENCOUNTER → 2022-08-30 | Outpatient (CLI) | payer OTHER ==
[2022-08-30 17:47] LABS: HEMOGLOBIN A1c 6.3 %
[2022-08-30 19:02] LABS: ALBUMIN 3.7 GM/DL (3.2-5.2); ALT/SGPT 16 U/L (12-78); BILIRUBIN,TOTAL 0.3 MG/DL (0.2-1.0); BLOOD UREA NITROGEN 25 MG/DL (7-18); CARBON DIOXIDE LEVEL 27 MEQ/L (21-32); CHLORIDE LEVEL 109 MEQ/L (98-107); CHOLESTEROL LEVEL 200 MG/DL (<200); CHOLESTEROL RISK RATIO 9.523 (<5); CREATININE FOR GFR 1.45 MG/DL (0.55-1.30); FREE T4 0.94 NG/DL (0.76-1.46); GLOMERULAR FILTRATION RATE 38.8 (>45); GLUCOSE, FASTING 99 MG/DL (70-100); HDL CHOLESTEROL 21 MG/DL (>40); NON-HDL-C 179 MG/DL; POTASSIUM SERUM 4.2 MEQ/L (3.5-5.1); SODIUM LEVEL 142 MEQ/L (136-145); TOTAL PROTEIN 7.3 GM/DL (6.4-8.2); TRIGLYCERIDES LEVEL 895 MG/DL (<150); URIC ACID 7.8 MG/DL (2.6-6.0)
== END ==
LOC: M WUC 14:01
PROVIDERS: ATTEND Nurse Practitioner Family
DX: I10 Essential (primary) hypertension (principal); E78.2 Mixed hyperlipidemia; R73.03 Prediabetes; M10.9 Gout, unspecified; G47.00 Insomnia, unspecified

== ENCOUNTER → 2022-10-10 | Outpatient (CLI) | payer OTHER | LOC: M RAD 07:25 | PROVIDERS: ATTEND Nurse Practitioner Family | DX: Z12.2 Encounter for screening for malignant neoplasm of respiratory organs (principal); F17.210 Nicotine dependence, cigarettes, uncomplicated ==

== ENCOUNTER → 2023-02-26 | Outpatient (REF) | payer OTHER ==
[2023-02-26 19:08] LABS: HEMOGLOBIN A1c 5.5 % (4.0-6.0)
== END ==
LOC: M LABWUC 16:23
PROVIDERS: ATTEND Nurse Practitioner Family
DX: R73.03 Prediabetes (principal)

== ENCOUNTER 2023-08-25 08:05 | Day surgery (SDC) | payer OTHER ==
[~2023-08-25] VITALS: Ht 160 cm; Wt 86.8 kg
[~2023-08-25 08:05] MED LIST changes: +ACET1TAB55 PO; +ALLO100T PO; +AMLO1TAB25 PO; +CETI-24 PO; +CIPR250T3 PO; +HYDR-3363 PO; +HYDR-3490 PO; +LIDOCAINE 2% 100MG/5ML SDV (FOR ANES.) As Ordered ONE; +LIVA2TAB PO; -LOSA100T45 PO; +LOSA100T46 PO; +METR-265 PO; +NS 1,000 ML IV ONE; +NYST-38 PO; +ZOLO100T PO; +propofoL 200 MG/20 ML VIAL As Ordered ONE
[2023-08-25] MEDS ORDERED: propofoL 200 MG/20 ML VIAL As Ordered ONE ×2 (09:40→10:00)
[2023-08-25] MEDS ORDERED: GLUCAGON INJ 1MG VIAL As Ordered ONE (09:55)
[2023-08-25 10:33] VITALS: BP 142/65; O2SAT 94
== END 2023-08-25 10:50 | disposition home or self-care (01) ==
LOC: M OPP 08:05
PROVIDERS: ATTEND Internal Medicine Gastroenterology
DX: Z12.11 Encounter for screening for malignant neoplasm of colon (principal); Z83.719 Family history of colon polyps, unspecified; K64.0 First degree hemorrhoids; K57.30 Diverticulosis of large intestine without perforation or abscess without bleeding; K58.9 Irritable bowel syndrome, unspecified; G47.30 Sleep apnea, unspecified; Z99.89 Dependence on other enabling machines and devices; Z79.02 Long term (current) use of antithrombotics/antiplatelets; Z79.52 Long term (current) use of systemic steroids; Z79.60 Long term (current) use of unspecified immunomodulators and immunosuppressants; Z79.83 Long term (current) use of bisphosphonates; Z79.899 Other long term (current) drug therapy
CPT/HCPCS: 45378; J1610

== ENCOUNTER → 2023-09-17 | Outpatient (REF) | payer OTHER ==
[~2023-09-17] MED LIST changes: -LIDOCAINE 2% 100MG/5ML SDV (FOR ANES.) As Ordered ONE; -NS 1,000 ML IV ONE; -propofoL 200 MG/20 ML VIAL As Ordered ONE
[2023-09-17 14:26] LABS: BASO # 0.1 10^3/uL (0.0-0.2); BASO % 0.6 % (0.0-1.0); EOS # 0.3 10^3/uL (0.0-0.5); EOS % 2.4 % (0.0-3.0); HEMATOCRIT 42.8 % (36.0-47.0); HEMOGLOBIN 13.4 g/dl (12.0-15.5); LYMPH # 4.5 10^3/uL (1.5-5.0); LYMPH % 43.3 % (24.0-44.0); MEAN CORPUSCULAR HEMOGLOBIN 27.1 pg (27.0-33.0); MEAN CORPUSCULAR HGB CONC 31.3 g/dl (32.0-36.5); MEAN CORPUSCULAR VOLUME 86.5 fl (80.0-96.0); MONO # 0.6 10^3/uL (0.0-0.8); MONO % 5.7 % (2.0-8.0); NEUTROPHILS % 47.4 % (36.0-66.0); PLATELET COUNT, AUTOMATED 244 10^3/uL (150-450); RED BLOOD COUNT 4.95 10^6/uL (4.00-5.40); WHITE BLOOD COUNT 10.5 10^3/uL (4.0-10.0)
[2023-09-17 14:41] LABS: HEMOGLOBIN A1c 5.7 % (4.0-6.0)
[2023-09-17 14:59] LABS: CREATININE, URINE 207.8 MG/DL; MAU/CREAT RATIO 4.3 MCG/MG (0.0-30.0)
[2023-09-17 15:00] LABS: ALBUMIN 4.2 G/DL (3.2-5.2); ALKALINE PHOSPHATASE 95 U/L (46-116); ALT/SGPT 13 U/L (7.0-40); AST/SGOT 15 U/L (<34); BILIRUBIN,TOTAL 0.2 MG/DL (0.3-1.2); BLOOD UREA NITROGEN 28 MG/DL (9-23); CALCIUM LEVEL 9.9 MG/DL (8.3-10.6); CARBON DIOXIDE LEVEL 26 MMOL/L (20-31); CHLORIDE LEVEL 105 MMOL/L (98-107); CHOLESTEROL LEVEL 187 MG/DL (<200); CHOLESTEROL RISK RATIO 7.48 (<5); CREATININE FOR GFR 1.59 MG/DL (0.55-1.30); GLOMERULAR FILTRATION RATE 34.8 (>45); GLUCOSE, FASTING 104 MG/DL (74-106); POTASSIUM SERUM 4.6 MMOL/L (3.5-5.1); SODIUM LEVEL 138 MMOL/L (136-145); TOTAL PROTEIN 7.6 G/DL (5.7-8.2); TRIGLYCERIDES LEVEL 607 MG/DL (<150); URIC ACID 8.6 MG/DL (3.1-7.8)
== END ==
LOC: M LABWUC 12:26
PROVIDERS: ATTEND Nurse Practitioner Family
DX: I10 Essential (primary) hypertension (principal); E78.2 Mixed hyperlipidemia; R73.03 Prediabetes; M10.9 Gout, unspecified

== ENCOUNTER 2023-10-30 08:31 | Inpatient (IN) | payer MEDICARE, OTHER ==
[~2023-10-30] VITALS: Ht 160 cm; Wt 88.0 kg
[2023-10-30] MEDS ORDERED: NYST1POW9 TOP (08:51)
[2023-10-30] MEDS ORDERED: FENO48TA8 PO (08:51)
[2023-10-30] MEDS ORDERED: MOME0.1C3 TOP (08:51)
[2023-10-30] MEDS ORDERED: LORazepam 2 MG/ML 1ML VIAL IV STA (09:07)
[2023-10-30] MEDS: NS 1,000 ML IV SCH ×2 (09:50→19:51)
[2023-10-30 10:00] LABS: BASO % 0.2 % (0.0-1.0); EOS # 0.1 10^3/uL (0.0-0.5); EOS % 0.8 % (0.0-3.0); HEMATOCRIT 37.5 % (36.0-47.0); HEMOGLOBIN 12.5 g/dl (12.0-15.5); LYMPH % 19.6 % (24.0-44.0); MEAN CORPUSCULAR HEMOGLOBIN 27.2 pg (27.0-33.0); MEAN CORPUSCULAR HGB CONC 33.3 g/dl (32.0-36.5); MEAN CORPUSCULAR VOLUME 81.7 fl (80.0-96.0); MONO # 0.8 10^3/uL (0.0-0.8); MONO % 7.6 % (2.0-8.0); NEUTROPHILS # 7.3 10^3/uL (1.5-8.5); NEUTROPHILS % 71.4 % (36.0-66.0); PLATELET COUNT, AUTOMATED 192 10^3/uL (150-450); RED BLOOD COUNT 4.59 10^6/uL (4.00-5.40); WHITE BLOOD COUNT 10.2 10^3/uL (4.0-10.0)
[2023-10-30 10:14] LABS: CALCIUM LEVEL 9.8 MG/DL (8.3-10.6); CREATININE FOR GFR 1.85 MG/DL (0.55-1.30); GLOMERULAR FILTRATION RATE 29.2 (>45)
[2023-10-30] MEDS ORDERED: fentaNYL 100 MCG/2 ML INJECTION IV ONE (10:25)
[2023-10-30] MEDS ORDERED: NS 1,000 ML IV ONE (10:25)
[2023-10-30] MEDS: GASTROGRAFIN SOLUTION 30ML PO SCH ×2 (11:40→11:41)
[2023-10-30] MEDS ORDERED: PIPERACILLIN/TAZOBACTAM SOD 4.5 GM in D5W MINI-BAG PLUS 50 ML IV ONE (14:15)
[2023-10-30] MEDS ORDERED: MORPHINE 4 MG/ML 1ML VIAL IV PRN (15:20)
[2023-10-30] MEDS ORDERED: MED REC IN PROGRESS XX SCH (16:00)
[2023-10-30] MEDS ORDERED: ACETAMINOPHEN *IV* 1,000 MG in IV 1 EA IV ONE (16:45)
[2023-10-30 16:55] VITALS: BP 120/62; TEMP 98.6; O2SAT 95
[2023-10-30 17:00] LABS: C REACTIVE PROTEIN QUANTITATIV 7.7 MG/DL (<1.0); MAGNESIUM LEVEL 1.5 MG/DL (1.8-2.4)
[2023-10-30 17:01] LABS: ALBUMIN 3.2 G/DL (3.2-5.2); ALKALINE PHOSPHATASE 76 U/L (46-116); ALT/SGPT < 9 U/L (7.0-40); AST/SGOT 11 U/L (<34); BILIRUBIN,TOTAL 0.4 MG/DL (0.3-1.2); BLOOD UREA NITROGEN 29 MG/DL (9-23); CARBON DIOXIDE LEVEL 23 MMOL/L (20-31); CHLORIDE LEVEL 105 MMOL/L (98-107); CREATININE FOR GFR 1.67 MG/DL (0.55-1.30); GLOMERULAR FILTRATION RATE 32.9 (>45); GLUCOSE, FASTING 97 MG/DL (74-106); POTASSIUM SERUM 4.1 MMOL/L (3.5-5.1); SODIUM LEVEL 135 MMOL/L (136-145); TOTAL PROTEIN 6.7 G/DL (5.7-8.2)
[2023-10-30] MEDS ORDERED: ONDANSETRON 4MG 2ML VIAL IV PRN (17:05)
[2023-10-30] MEDS ORDERED: FENO54TA2 PO (17:20)
[2023-10-30] MEDS ORDERED: HOME MED LIST COMPLETE! XX SCH (17:25)
[2023-10-30] MEDS: PANTOPRAZOLE 40MG VIAL IV SCH (18:00)
[2023-10-30] MEDS: NICOTINE 21MG/24HR 1 EA TRANSDERMAL TD SCH (18:00)
[2023-10-30 19:38] VITALS: BP 130/61; TEMP 98.5; O2SAT 94
[2023-10-30] MEDS: HEPARIN SOD (PORCINE) 5000UNITS/ML 1ML VIAL/SYRINGE SC SCH (21:52)
[2023-10-30] MEDS: PIPERACILLIN/TAZOBACTAM SOD 4.5 GM in D5W MINI-BAG PLUS 50 ML IV SCH (22:52)
[2023-10-30] MEDS: MORPHINE 2 MG/ML 1ML VIAL IV PRN (22:53)
[2023-10-30 22:58] VITALS: BP 134/60; TEMP 98.6; O2SAT 96
[2023-10-31 04:14] VITALS: BP 124/65; TEMP 97.2; O2SAT 96
[2023-10-31] MEDS: NS 1,000 ML IV SCH ×2 (04:35→17:45)
[2023-10-31 05:38] LABS: BASO % 0.1 % (0.0-1.0); EOS # 0.1 10^3/uL (0.0-0.5); EOS % 1.2 % (0.0-3.0); HEMATOCRIT 31.6 % (36.0-47.0); LYMPH # 1.3 10^3/uL (1.5-5.0); LYMPH % 19.8 % (24.0-44.0); MEAN CORPUSCULAR HEMOGLOBIN 26.9 pg (27.0-33.0); MEAN CORPUSCULAR HGB CONC 32.9 g/dl (32.0-36.5); MEAN CORPUSCULAR VOLUME 81.7 fl (80.0-96.0); MONO # 0.6 10^3/uL (0.0-0.8); MONO % 8.4 % (2.0-8.0); NEUTROPHILS # 4.7 10^3/uL (1.5-8.5); NEUTROPHILS % 70.2 % (36.0-66.0); PLATELET COUNT, AUTOMATED 163 10^3/uL (150-450); RED BLOOD COUNT 3.87 10^6/uL (4.00-5.40); WHITE BLOOD COUNT 6.7 10^3/uL (4.0-10.0)
[2023-10-31 05:44] LABS: HEMOGLOBIN 10.4 g/dl (12.0-15.5)
[2023-10-31 06:03] LABS: CALCIUM LEVEL 8.6 MG/DL (8.3-10.6); CREATININE FOR GFR 1.61 MG/DL (0.55-1.30); GLOMERULAR FILTRATION RATE 34.3 (>45); MAGNESIUM LEVEL 1.7 MG/DL (1.8-2.4); POTASSIUM SERUM 4.1 MMOL/L (3.5-5.1)
[2023-10-31] MEDS: PIPERACILLIN/TAZOBACTAM SOD 4.5 GM in D5W MINI-BAG PLUS 50 ML IV SCH ×3 (06:11→21:53)
[2023-10-31 08:00] VITALS: BP_SYST 123; BP_SYST 138; BP_DIAS 58; BP_DIAS 65; TEMP 96.4; TEMP 97.8; O2SAT 93; O2SAT 96
[2023-10-31] MEDS ORDERED: MAG SULF 1GM/100ML (MAG RUN) 1 GM in IV 1 EA IV ONE (08:00)
[2023-10-31] MEDS: NYSTATIN 100,000 UNITS/GM TOPICAL PWD 15GM TOP SCH ×2 (09:00→21:00)
[2023-10-31] MEDS ORDERED: METOPROLOL SUCC (TopROL XL) 100MG *XL* TAB PO SCH (09:00)
[2023-10-31] MEDS: HEPARIN SOD (PORCINE) 5000UNITS/ML 1ML VIAL/SYRINGE SC SCH ×2 (09:20→21:49)
[2023-10-31] MEDS: PANTOPRAZOLE 40MG VIAL IV SCH (09:20)
[2023-10-31] MEDS: OMEPRAZOLE 20MG CAP PO SCH (09:20)
[2023-10-31] MEDS: NICOTINE 21MG/24HR 1 EA TRANSDERMAL TD SCH (09:21)
[2023-10-31] MEDS: SERTRALINE 100 MG TAB PO SCH (09:21)
[2023-10-31] MEDS: CETIRIZINE (ZyrTEC) 10 MG TAB PO SCH (09:21)
[2023-10-31] MEDS: MORPHINE 2 MG/ML 1ML VIAL IV PRN (09:34)
[2023-10-31] MEDS: KETOROLAC 30 MG/ML 1ML VIAL IV SCH ×2 (11:42→21:49)
[2023-10-31 12:00] VITALS: BP 150/65; TEMP 97.4; O2SAT 96
[2023-10-31 16:00] VITALS: BP 135/63; TEMP 96.4; O2SAT 95
[2023-10-31] MEDS: PERCOCET 5MG/325MG TAB PO PRN (21:49)
[2023-10-31 22:00] VITALS: BP 148/70; TEMP 98.1; O2SAT 96
[2023-10-31 23:53] VITALS: BP 130/61; TEMP 98.3; O2SAT 97
[2023-11-01] MEDS: NS 1,000 ML IV SCH ×3 (00:34→21:06)
[2023-11-01 04:00] VITALS: BP 162/70; TEMP 97.5; O2SAT 95
[2023-11-01] MEDS: PIPERACILLIN/TAZOBACTAM SOD 4.5 GM in D5W MINI-BAG PLUS 50 ML IV SCH ×3 (06:06→21:07)
[2023-11-01 08:00] VITALS: BP 143/60; TEMP 97.8; O2SAT 94
[2023-11-01 09:01] LABS: BASO % 0.4 % (0.0-1.0); EOS # 0.1 10^3/uL (0.0-0.5); EOS % 2.2 % (0.0-3.0); HEMATOCRIT 29.5 % (36.0-47.0); HEMOGLOBIN 9.7 g/dl (12.0-15.5); LYMPH # 1.1 10^3/uL (1.5-5.0); LYMPH % 21.1 % (24.0-44.0); MEAN CORPUSCULAR HEMOGLOBIN 27.3 pg (27.0-33.0); MEAN CORPUSCULAR HGB CONC 32.9 g/dl (32.0-36.5); MEAN CORPUSCULAR VOLUME 83.1 fl (80.0-96.0); MONO # 0.5 10^3/uL (0.0-0.8); MONO % 9.4 % (2.0-8.0); NEUTROPHILS # 3.4 10^3/uL (1.5-8.5); NEUTROPHILS % 65.9 % (36.0-66.0); PLATELET COUNT, AUTOMATED 205 10^3/uL (150-450); RED BLOOD COUNT 3.55 10^6/uL (4.00-5.40); WHITE BLOOD COUNT 5.1 10^3/uL (4.0-10.0)
[2023-11-01 09:36] LABS: CALCIUM LEVEL 8.6 MG/DL (8.3-10.6); CREATININE FOR GFR 1.64 MG/DL (0.55-1.30); GLOMERULAR FILTRATION RATE 33.6 (>45); MAGNESIUM LEVEL 1.8 MG/DL (1.8-2.4); POTASSIUM SERUM 4.4 MMOL/L (3.5-5.1)
[2023-11-01] MEDS: PANTOPRAZOLE 40MG VIAL IV SCH (09:49)
[2023-11-01] MEDS: OMEPRAZOLE 20MG CAP PO SCH (09:49)
[2023-11-01] MEDS: HEPARIN SOD (PORCINE) 5000UNITS/ML 1ML VIAL/SYRINGE SC SCH ×2 (09:49→21:05)
[2023-11-01] MEDS: allopurinoL 100 MG TAB PO SCH (09:50)
[2023-11-01] MEDS: SERTRALINE 100 MG TAB PO SCH (09:50)
[2023-11-01] MEDS: NICOTINE 21MG/24HR 1 EA TRANSDERMAL TD SCH (09:50)
[2023-11-01] MEDS: CETIRIZINE (ZyrTEC) 10 MG TAB PO SCH (09:50)
[2023-11-01] MEDS: KETOROLAC 30 MG/ML 1ML VIAL IV SCH ×2 (09:59→21:05)
[2023-11-01] MEDS: NYSTATIN 100,000 UNITS/GM TOPICAL PWD 15GM TOP SCH ×2 (11:44→21:00)
[2023-11-01 12:00] VITALS: BP 146/62; TEMP 98.4
[2023-11-01 12:56] VITALS: O2SAT 96
[2023-11-01 20:10] VITALS: BP 172/70; TEMP 98.3; O2SAT 96
[2023-11-01 21:05] VITALS: BP 160/72
[2023-11-01] MEDS: PERCOCET 5MG/325MG TAB PO PRN (21:05)
[2023-11-02] MEDS: PERCOCET 5MG/325MG TAB PO PRN (01:39)
[2023-11-02 04:20] VITALS: BP 161/72; TEMP 97.3; O2SAT 96
[2023-11-02 05:39] LABS: BASO % 0.2 % (0.0-1.0); EOS # 0.2 10^3/uL (0.0-0.5); EOS % 2.6 % (0.0-3.0); HEMATOCRIT 27.5 % (36.0-47.0); LYMPH # 1.4 10^3/uL (1.5-5.0); LYMPH % 22.3 % (24.0-44.0); MEAN CORPUSCULAR HEMOGLOBIN 27.3 pg (27.0-33.0); MEAN CORPUSCULAR HGB CONC 32.7 g/dl (32.0-36.5); MEAN CORPUSCULAR VOLUME 83.3 fl (80.0-96.0); MONO # 0.6 10^3/uL (0.0-0.8); MONO % 10.5 % (2.0-8.0); NEUTROPHILS # 3.9 10^3/uL (1.5-8.5); NEUTROPHILS % 63.9 % (36.0-66.0); PLATELET COUNT, AUTOMATED 213 10^3/uL (150-450); WHITE BLOOD COUNT 6.1 10^3/uL (4.0-10.0)
[2023-11-02] MEDS: PIPERACILLIN/TAZOBACTAM SOD 4.5 GM in D5W MINI-BAG PLUS 50 ML IV SCH ×3 (06:00→23:15)
[2023-11-02 06:01] LABS: CALCIUM LEVEL 8.4 MG/DL (8.3-10.6); CREATININE FOR GFR 1.61 MG/DL (0.55-1.30); GLOMERULAR FILTRATION RATE 34.3 (>45); MAGNESIUM LEVEL 1.6 MG/DL (1.8-2.4); POTASSIUM SERUM 4.4 MMOL/L (3.5-5.1)
[2023-11-02 08:00] VITALS: BP 153/78; TEMP 98; O2SAT 98
[2023-11-02] MEDS ORDERED: MAG SULF 1GM/100ML (MAG RUN) 1 GM in IV 1 EA IV ONE (08:00)
[2023-11-02] MEDS: PANTOPRAZOLE 40MG VIAL IV SCH (08:26)
[2023-11-02] MEDS: HEPARIN SOD (PORCINE) 5000UNITS/ML 1ML VIAL/SYRINGE SC SCH ×2 (08:26→21:04)
[2023-11-02] MEDS: NICOTINE 21MG/24HR 1 EA TRANSDERMAL TD SCH (08:29)
[2023-11-02] MEDS: OMEPRAZOLE 20MG CAP PO SCH (08:30)
[2023-11-02] MEDS: allopurinoL 100 MG TAB PO SCH (08:30)
[2023-11-02] MEDS: NYSTATIN 100,000 UNITS/GM TOPICAL PWD 15GM TOP SCH ×2 (08:30→21:04)
[2023-11-02] MEDS: CETIRIZINE (ZyrTEC) 10 MG TAB PO SCH (08:31)
[2023-11-02] MEDS: SERTRALINE 100 MG TAB PO SCH (08:31)
[2023-11-02] MEDS: NS 1,000 ML IV SCH ×2 (08:33→21:39)
[2023-11-02] MEDS: KETOROLAC 30 MG/ML 1ML VIAL IV SCH ×2 (10:16→23:15)
[2023-11-02 16:00] VITALS: BP 156/72; TEMP 97.6; O2SAT 94
[2023-11-02 21:30] VITALS: BP 168/75; TEMP 99; O2SAT 95
[2023-11-03] MEDS: NS 1,000 ML IV SCH (03:10)
[2023-11-03 04:08] VITALS: BP 168/80; TEMP 97.4; O2SAT 96
[2023-11-03 06:14] LABS: BASO % 0.4 % (0.0-1.0); EOS # 0.2 10^3/uL (0.0-0.5); EOS % 3.1 % (0.0-3.0); HEMATOCRIT 27.3 % (36.0-47.0); HEMOGLOBIN 8.8 g/dl (12.0-15.5); LYMPH # 1.4 10^3/uL (1.5-5.0); LYMPH % 26.5 % (24.0-44.0); MEAN CORPUSCULAR HEMOGLOBIN 26.4 pg (27.0-33.0); MEAN CORPUSCULAR HGB CONC 32.2 g/dl (32.0-36.5); MONO # 0.5 10^3/uL (0.0-0.8); MONO % 10.1 % (2.0-8.0); NEUTROPHILS % 59.1 % (36.0-66.0); PLATELET COUNT, AUTOMATED 232 10^3/uL (150-450); RED BLOOD COUNT 3.33 10^6/uL (4.00-5.40); WHITE BLOOD COUNT 5.1 10^3/uL (4.0-10.0)
[2023-11-03 06:32] LABS: CALCIUM LEVEL 8.6 MG/DL (8.3-10.6); CREATININE FOR GFR 1.57 MG/DL (0.55-1.30); GLOMERULAR FILTRATION RATE 35.3 (>45); MAGNESIUM LEVEL 1.7 MG/DL (1.8-2.4)
[2023-11-03] MEDS: PIPERACILLIN/TAZOBACTAM SOD 4.5 GM in D5W MINI-BAG PLUS 50 ML IV SCH ×3 (06:51→22:50)
[2023-11-03] MEDS ORDERED: MAG SULF 1GM/100ML (MAG RUN) 1 GM in IV 1 EA IV ONE (08:00)
[2023-11-03] MEDS: NICOTINE 21MG/24HR 1 EA TRANSDERMAL TD SCH (08:40)
[2023-11-03] MEDS: CETIRIZINE (ZyrTEC) 10 MG TAB PO SCH (08:41)
[2023-11-03] MEDS: OMEPRAZOLE 20MG CAP PO SCH (08:41)
[2023-11-03] MEDS: SERTRALINE 100 MG TAB PO SCH (08:41)
[2023-11-03] MEDS: allopurinoL 100 MG TAB PO SCH (08:41)
[2023-11-03] MEDS: PANTOPRAZOLE 40MG VIAL IV SCH (08:41)
[2023-11-03] MEDS: HEPARIN SOD (PORCINE) 5000UNITS/ML 1ML VIAL/SYRINGE SC SCH ×2 (08:41→20:35)
[2023-11-03] MEDS: NYSTATIN 100,000 UNITS/GM TOPICAL PWD 15GM TOP SCH ×2 (08:42→20:35)
[2023-11-03 09:25] VITALS: BP 177/84; TEMP 98; O2SAT 96
[2023-11-03] MEDS: KETOROLAC 30 MG/ML 1ML VIAL IV SCH ×2 (11:54→22:50)
[2023-11-03 12:00] VITALS: BP 170/77; TEMP 97.5; O2SAT 97
[2023-11-03 20:36] VITALS: BP 180/82; TEMP 98.8; O2SAT 95
[2023-11-03] MEDS ORDERED: **hydrALAZINE HCL** 25 MG TAB PO ONE (21:30)
[2023-11-03 22:52] VITALS: BP 165/89; TEMP 98.1; O2SAT 95
[2023-11-04] VITALS (8 sets, daily range): BP systolic 148–186; BP diastolic 62–83; TEMP 97.7–98.6; O2SAT 94–99
[2023-11-04] MEDS ORDERED: **hydrALAZINE HCL** 25 MG TAB PO ONE (04:55)
[2023-11-04 05:56] LABS: BASO % 0.2 % (0.0-1.0); EOS # 0.2 10^3/uL (0.0-0.5); EOS % 2.8 % (0.0-3.0); HEMATOCRIT 28.9 % (36.0-47.0); HEMOGLOBIN 9.3 g/dl (12.0-15.5); LYMPH # 1.4 10^3/uL (1.5-5.0); LYMPH % 21.7 % (24.0-44.0); MEAN CORPUSCULAR HEMOGLOBIN 26.7 pg (27.0-33.0); MEAN CORPUSCULAR HGB CONC 32.2 g/dl (32.0-36.5); MONO # 0.6 10^3/uL (0.0-0.8); MONO % 9.1 % (2.0-8.0); NEUTROPHILS # 4.2 10^3/uL (1.5-8.5); NEUTROPHILS % 65.7 % (36.0-66.0); PLATELET COUNT, AUTOMATED 234 10^3/uL (150-450); RED BLOOD COUNT 3.48 10^6/uL (4.00-5.40); WHITE BLOOD COUNT 6.5 10^3/uL (4.0-10.0)
[2023-11-04 06:25] LABS: CALCIUM LEVEL 8.6 MG/DL (8.3-10.6); CREATININE FOR GFR 1.53 MG/DL (0.55-1.30); GLOMERULAR FILTRATION RATE 36.4 (>45); MAGNESIUM LEVEL 1.8 MG/DL (1.8-2.4); POTASSIUM SERUM 4.1 MMOL/L (3.5-5.1)
[2023-11-04] MEDS: PIPERACILLIN/TAZOBACTAM SOD 4.5 GM in D5W MINI-BAG PLUS 50 ML IV SCH ×3 (06:30→22:24)
[2023-11-04] MEDS: HEPARIN SOD (PORCINE) 5000UNITS/ML 1ML VIAL/SYRINGE SC SCH ×3 (09:00→20:56)
[2023-11-04] MEDS: PANTOPRAZOLE 40MG VIAL IV SCH (09:01)
[2023-11-04] MEDS: OMEPRAZOLE 20MG CAP PO SCH (09:02)
[2023-11-04] MEDS: allopurinoL 100 MG TAB PO SCH (09:02)
[2023-11-04] MEDS: LOSARTAN 50MG TABLET PO SCH (09:02)
[2023-11-04] MEDS: NYSTATIN 100,000 UNITS/GM TOPICAL PWD 15GM TOP SCH ×2 (09:03→20:56)
[2023-11-04] MEDS: CETIRIZINE (ZyrTEC) 10 MG TAB PO SCH (09:03)
[2023-11-04] MEDS: SERTRALINE 100 MG TAB PO SCH (09:03)
[2023-11-04] MEDS: NICOTINE 21MG/24HR 1 EA TRANSDERMAL TD SCH (09:18)
[2023-11-04] MEDS: PERCOCET 5MG/325MG TAB PO PRN ×2 (10:59→18:08)
[2023-11-04] MEDS ORDERED: ISOVUE-370 76% 100ML VIAL As Ordered ONE (12:35)
[2023-11-04] MEDS: MORPHINE 2 MG/ML 1ML VIAL IV PRN ×2 (12:53→20:55)
[2023-11-04] MEDS ORDERED: NS 1,000 ML IV ONE (14:00)
[2023-11-05 03:25] VITALS: BP 168/76; TEMP 97.8; O2SAT 98
[2023-11-05 05:58] LABS: BASO % 0.4 % (0.0-1.0); EOS # 0.2 10^3/uL (0.0-0.5); EOS % 2.5 % (0.0-3.0); HEMATOCRIT 29.4 % (36.0-47.0); HEMOGLOBIN 9.5 g/dl (12.0-15.5); LYMPH # 1.5 10^3/uL (1.5-5.0); LYMPH % 18.9 % (24.0-44.0); MEAN CORPUSCULAR HEMOGLOBIN 26.8 pg (27.0-33.0); MEAN CORPUSCULAR HGB CONC 32.3 g/dl (32.0-36.5); MEAN CORPUSCULAR VOLUME 83.1 fl (80.0-96.0); MONO # 0.6 10^3/uL (0.0-0.8); MONO % 8.2 % (2.0-8.0); NEUTROPHILS # 5.5 10^3/uL (1.5-8.5); NEUTROPHILS % 69.5 % (36.0-66.0); PLATELET COUNT, AUTOMATED 260 10^3/uL (150-450); RED BLOOD COUNT 3.54 10^6/uL (4.00-5.40); WHITE BLOOD COUNT 7.9 10^3/uL (4.0-10.0)
[2023-11-05] MEDS: PIPERACILLIN/TAZOBACTAM SOD 4.5 GM in D5W MINI-BAG PLUS 50 ML IV SCH ×3 (06:06→22:09)
[2023-11-05 06:22] LABS: CALCIUM LEVEL 8.7 MG/DL (8.3-10.6); CREATININE FOR GFR 1.35 MG/DL (0.55-1.30); MAGNESIUM LEVEL 1.6 MG/DL (1.8-2.4); POTASSIUM SERUM 3.9 MMOL/L (3.5-5.1)
[2023-11-05 07:59] VITALS: BP 164/93; TEMP 97.9; O2SAT 92
[2023-11-05] MEDS: OMEPRAZOLE 20MG CAP PO SCH (09:43)
[2023-11-05] MEDS: MAG SULF 1GM/100ML (MAG RUN) 1 GM in IV 1 EA IV SCH ×2 (09:43→11:10)
[2023-11-05] MEDS: allopurinoL 100 MG TAB PO SCH (09:44)
[2023-11-05] MEDS: CETIRIZINE (ZyrTEC) 10 MG TAB PO SCH (09:45)
[2023-11-05] MEDS: HEPARIN SOD (PORCINE) 5000UNITS/ML 1ML VIAL/SYRINGE SC SCH ×2 (09:45→22:09)
[2023-11-05] MEDS: LOSARTAN 50MG TABLET PO SCH (09:45)
[2023-11-05] MEDS: PANTOPRAZOLE 40MG VIAL IV SCH (09:45)
[2023-11-05] MEDS: SERTRALINE 100 MG TAB PO SCH (09:45)
[2023-11-05] MEDS: NYSTATIN 100,000 UNITS/GM TOPICAL PWD 15GM TOP SCH ×2 (09:46→22:09)
[2023-11-05] MEDS: NICOTINE 21MG/24HR 1 EA TRANSDERMAL TD SCH (09:46)
[2023-11-05] MEDS: MORPHINE 2 MG/ML 1ML VIAL IV PRN ×3 (10:13→23:48)
[2023-11-05 11:58] VITALS: BP 144/66; TEMP 98.1; O2SAT 93
[2023-11-05 16:23] VITALS: BP 167/78; TEMP 97.9; O2SAT 95
[2023-11-05 20:00] VITALS: BP 164/70; TEMP 97.2; O2SAT 95
[2023-11-06 04:00] VITALS: BP 167/74; TEMP 97; O2SAT 95
[2023-11-06] MEDS: PIPERACILLIN/TAZOBACTAM SOD 4.5 GM in D5W MINI-BAG PLUS 50 ML IV SCH ×3 (06:14→23:41)
[2023-11-06] MEDS: MAGIC MOUTHWASH SUSPENSION BTL SS PRN ×2 (06:16→20:27)
[2023-11-06] MEDS: MORPHINE 2 MG/ML 1ML VIAL IV PRN ×2 (06:16→23:54)
[2023-11-06 06:42] LABS: BASO % 0.4 % (0.0-1.0); EOS # 0.2 10^3/uL (0.0-0.5); EOS % 2.3 % (0.0-3.0); HEMATOCRIT 32.9 % (36.0-47.0); HEMOGLOBIN 10.7 g/dl (12.0-15.5); LYMPH # 1.7 10^3/uL (1.5-5.0); LYMPH % 21.7 % (24.0-44.0); MEAN CORPUSCULAR HEMOGLOBIN 26.6 pg (27.0-33.0); MEAN CORPUSCULAR HGB CONC 32.5 g/dl (32.0-36.5); MEAN CORPUSCULAR VOLUME 81.8 fl (80.0-96.0); MONO # 0.6 10^3/uL (0.0-0.8); MONO % 7.5 % (2.0-8.0); NEUTROPHILS # 5.4 10^3/uL (1.5-8.5); NEUTROPHILS % 67.6 % (36.0-66.0); PLATELET COUNT, AUTOMATED 275 10^3/uL (150-450); RED BLOOD COUNT 4.02 10^6/uL (4.00-5.40)
[2023-11-06 07:09] LABS: CALCIUM LEVEL 8.8 MG/DL (8.3-10.6); CREATININE FOR GFR 1.46 MG/DL (0.55-1.30); GLOMERULAR FILTRATION RATE 38.4 (>45); MAGNESIUM LEVEL 1.9 MG/DL (1.8-2.4)
[2023-11-06 08:00] VITALS: BP 167/73; TEMP 96.8; O2SAT 95
[2023-11-06] MEDS: HEPARIN SOD (PORCINE) 5000UNITS/ML 1ML VIAL/SYRINGE SC SCH ×2 (09:38→20:24)
[2023-11-06] MEDS: PANTOPRAZOLE 40MG VIAL IV SCH (09:38)
[2023-11-06] MEDS: OMEPRAZOLE 20MG CAP PO SCH (09:39)
[2023-11-06] MEDS: NYSTATIN 100,000 UNITS/GM TOPICAL PWD 15GM TOP SCH ×2 (09:39→20:29)
[2023-11-06] MEDS: NICOTINE 21MG/24HR 1 EA TRANSDERMAL TD SCH (09:40)
[2023-11-06] MEDS: LOSARTAN 50MG TABLET PO SCH (09:41)
[2023-11-06] MEDS: CETIRIZINE (ZyrTEC) 10 MG TAB PO SCH (09:42)
[2023-11-06] MEDS: allopurinoL 100 MG TAB PO SCH (09:42)
[2023-11-06] MEDS: SERTRALINE 100 MG TAB PO SCH (09:42)
[2023-11-06 12:00] VITALS: BP 124/58; TEMP 96.8; O2SAT 95
[2023-11-06] MEDS: PERCOCET 5MG/325MG TAB PO PRN ×3 (14:44→21:30)
[2023-11-06 16:00] VITALS: BP 124/58; TEMP 96.8; TEMP 97.9; O2SAT 92; O2SAT 95
[2023-11-07] VITALS (7 sets, daily range): BP systolic 106–172; BP diastolic 61–84; TEMP 97.2–98.4; O2SAT 92–97
[2023-11-07] MEDS: PERCOCET 5MG/325MG TAB PO PRN ×3 (04:06→16:06)
[2023-11-07] MEDS: HEPARIN SOD (PORCINE) 5000UNITS/ML 1ML VIAL/SYRINGE SC SCH ×2 (08:00→20:58)
[2023-11-07] MEDS: PIPERACILLIN/TAZOBACTAM SOD 4.5 GM in D5W MINI-BAG PLUS 50 ML IV SCH ×3 (08:00→22:06)
[2023-11-07] MEDS: PANTOPRAZOLE 40MG VIAL IV SCH (08:00)
[2023-11-07] MEDS: NICOTINE 21MG/24HR 1 EA TRANSDERMAL TD SCH (08:01)
[2023-11-07] MEDS: NYSTATIN 100,000 UNITS/GM TOPICAL PWD 15GM TOP SCH ×2 (08:02→20:58)
[2023-11-07] MEDS: OMEPRAZOLE 20MG CAP PO SCH (08:03)
[2023-11-07] MEDS: allopurinoL 100 MG TAB PO SCH (08:05)
[2023-11-07] MEDS: LOSARTAN 50MG TABLET PO SCH (08:05)
[2023-11-07] MEDS: SERTRALINE 100 MG TAB PO SCH (08:05)
[2023-11-07] MEDS: CETIRIZINE (ZyrTEC) 10 MG TAB PO SCH (08:06)
[2023-11-07] MEDS: MORPHINE 2 MG/ML 1ML VIAL IV PRN ×2 (12:59→20:57)
[2023-11-08 05:10] VITALS: BP 134/67; TEMP 97.7; O2SAT 92
[2023-11-08] MEDS: PIPERACILLIN/TAZOBACTAM SOD 4.5 GM in D5W MINI-BAG PLUS 50 ML IV SCH ×3 (06:16→22:32)
[2023-11-08] MEDS: NICOTINE 21MG/24HR 1 EA TRANSDERMAL TD SCH (08:54)
[2023-11-08] MEDS: PANTOPRAZOLE 40MG VIAL IV SCH (08:55)
[2023-11-08] MEDS: allopurinoL 100 MG TAB PO SCH (08:55)
[2023-11-08] MEDS: HEPARIN SOD (PORCINE) 5000UNITS/ML 1ML VIAL/SYRINGE SC SCH ×2 (08:55→20:13)
[2023-11-08] MEDS: LOSARTAN 50MG TABLET PO SCH (08:56)
[2023-11-08] MEDS: CETIRIZINE (ZyrTEC) 10 MG TAB PO SCH (08:56)
[2023-11-08] MEDS: OMEPRAZOLE 20MG CAP PO SCH (08:56)
[2023-11-08] MEDS: SERTRALINE 100 MG TAB PO SCH (08:57)
[2023-11-08] MEDS: NYSTATIN 100,000 UNITS/GM TOPICAL PWD 15GM TOP SCH ×2 (08:59→20:14)
[2023-11-08 14:00] VITALS: BP 139/55; TEMP 97.9; O2SAT 97
[2023-11-08] MEDS: PERCOCET 5MG/325MG TAB PO PRN ×2 (15:26→21:13)
[2023-11-08] MEDS: MORPHINE 2 MG/ML 1ML VIAL IV PRN ×2 (20:14→20:26)
[2023-11-08 22:00] VITALS: BP 163/69; TEMP 97.5; O2SAT 95
[2023-11-09] MEDS: PIPERACILLIN/TAZOBACTAM SOD 4.5 GM in D5W MINI-BAG PLUS 50 ML IV SCH (06:04)
[2023-11-09 06:35] LABS: HEMATOCRIT 34.2 % (36.0-47.0); HEMOGLOBIN 10.8 g/dl (12.0-15.5); MEAN CORPUSCULAR HEMOGLOBIN 26.3 pg (27.0-33.0); MEAN CORPUSCULAR HGB CONC 31.6 g/dl (32.0-36.5); MEAN CORPUSCULAR VOLUME 83.2 fl (80.0-96.0); PLATELET COUNT, AUTOMATED 249 10^3/uL (150-450); RED BLOOD COUNT 4.11 10^6/uL (4.00-5.40)
[2023-11-09 07:00] LABS: ALKALINE PHOSPHATASE 109 U/L (46-116); ALT/SGPT < 9 U/L (7.0-40); AST/SGOT < 8 U/L (<34); BILIRUBIN,TOTAL 0.3 MG/DL (0.3-1.2); BLOOD UREA NITROGEN 17 MG/DL (9-23); CARBON DIOXIDE LEVEL 25 MMOL/L (20-31); CHLORIDE LEVEL 107 MMOL/L (98-107); CREATININE FOR GFR 1.38 MG/DL (0.55-1.30); GLUCOSE, FASTING 99 MG/DL (74-106); SODIUM LEVEL 139 MMOL/L (136-145); TOTAL PROTEIN 6.7 G/DL (5.7-8.2)
[2023-11-09] MEDS: OMEPRAZOLE 20MG CAP PO SCH (08:37)
[2023-11-09] MEDS: NICOTINE 21MG/24HR 1 EA TRANSDERMAL TD SCH (08:37)
[2023-11-09] MEDS: ACETAMINOPHEN TAB 650MG DOSE (2X325MG) PO PRN (08:37)
[2023-11-09] MEDS: LOSARTAN 50MG TABLET PO SCH (08:38)
[2023-11-09] MEDS: CETIRIZINE (ZyrTEC) 10 MG TAB PO SCH (08:38)
[2023-11-09] MEDS: SERTRALINE 100 MG TAB PO SCH (08:38)
[2023-11-09] MEDS: allopurinoL 100 MG TAB PO SCH (08:38)
[2023-11-09] MEDS: PANTOPRAZOLE 40MG VIAL IV SCH (08:39)
[2023-11-09] MEDS: HEPARIN SOD (PORCINE) 5000UNITS/ML 1ML VIAL/SYRINGE SC SCH ×2 (08:39→21:00)
[2023-11-09] MEDS: NYSTATIN 100,000 UNITS/GM TOPICAL PWD 15GM TOP SCH ×2 (08:40→21:01)
[2023-11-09] MEDS: ERTAPENEM SODIUM 1 GM in NS MINI-BAG PLUS 50 ML IV SCH (12:29)
[2023-11-09 14:00] VITALS: BP 143/59; TEMP 97.9; O2SAT 95
[2023-11-09] MEDS: PERCOCET 5MG/325MG TAB PO PRN (19:02)
[2023-11-09 21:23] VITALS: BP 141/60; TEMP 97.6; O2SAT 95
[2023-11-10 06:00] VITALS: BP 136/66; TEMP 97.9; O2SAT 95
[2023-11-10] MEDS: SERTRALINE 100 MG TAB PO SCH (09:38)
[2023-11-10] MEDS: HEPARIN SOD (PORCINE) 5000UNITS/ML 1ML VIAL/SYRINGE SC SCH ×2 (09:38→20:49)
[2023-11-10] MEDS: OMEPRAZOLE 20MG CAP PO SCH (09:38)
[2023-11-10] MEDS: LOSARTAN 50MG TABLET PO SCH (09:39)
[2023-11-10] MEDS: NYSTATIN 100,000 UNITS/GM TOPICAL PWD 15GM TOP SCH ×2 (09:39→20:51)
[2023-11-10] MEDS: allopurinoL 100 MG TAB PO SCH (09:39)
[2023-11-10] MEDS: CETIRIZINE (ZyrTEC) 10 MG TAB PO SCH (09:39)
[2023-11-10] MEDS: NICOTINE 21MG/24HR 1 EA TRANSDERMAL TD SCH (09:40)
[2023-11-10] MEDS: ACETAMINOPHEN TAB 650MG DOSE (2X325MG) PO PRN ×2 (09:43→17:06)
[2023-11-10] MEDS: ERTAPENEM SODIUM 1 GM in NS MINI-BAG PLUS 50 ML IV SCH (11:29)
[2023-11-10 14:00] VITALS: BP 142/67; TEMP 97.5; O2SAT 93
[2023-11-10] MEDS: PERCOCET 5MG/325MG TAB PO PRN (20:49)
[2023-11-10 21:01] VITALS: BP 155/69; TEMP 97.9; O2SAT 96
[2023-11-11] MEDS: PERCOCET 5MG/325MG TAB PO PRN ×2 (00:22→08:43)
[2023-11-11 05:48] VITALS: BP 116/52; TEMP 97; O2SAT 96
[2023-11-11 06:07] LABS: HEMATOCRIT 35.4 % (36.0-47.0); HEMOGLOBIN 11.3 g/dl (12.0-15.5); MEAN CORPUSCULAR HEMOGLOBIN 26.8 pg (27.0-33.0); MEAN CORPUSCULAR HGB CONC 31.9 g/dl (32.0-36.5); MEAN CORPUSCULAR VOLUME 83.9 fl (80.0-96.0); PLATELET COUNT, AUTOMATED 257 10^3/uL (150-450); RED BLOOD COUNT 4.22 10^6/uL (4.00-5.40)
[2023-11-11 06:32] LABS: CALCIUM LEVEL 9.4 MG/DL (8.3-10.6); CREATININE FOR GFR 1.43 MG/DL (0.55-1.30); GLOMERULAR FILTRATION RATE 39.3 (>45); POTASSIUM SERUM 3.9 MMOL/L (3.5-5.1)
[2023-11-11] MEDS: HEPARIN SOD (PORCINE) 5000UNITS/ML 1ML VIAL/SYRINGE SC SCH ×2 (08:36→21:36)
[2023-11-11] MEDS: SERTRALINE 100 MG TAB PO SCH (08:36)
[2023-11-11] MEDS: CETIRIZINE (ZyrTEC) 10 MG TAB PO SCH (08:36)
[2023-11-11] MEDS: allopurinoL 100 MG TAB PO SCH (08:36)
[2023-11-11] MEDS: OMEPRAZOLE 20MG CAP PO SCH (08:36)
[2023-11-11] MEDS: NICOTINE 21MG/24HR 1 EA TRANSDERMAL TD SCH (08:37)
[2023-11-11] MEDS: LOSARTAN 50MG TABLET PO SCH (08:37)
[2023-11-11] MEDS: NYSTATIN 100,000 UNITS/GM TOPICAL PWD 15GM TOP SCH ×2 (08:38→21:37)
[2023-11-11] MEDS: ERTAPENEM SODIUM 1 GM in NS MINI-BAG PLUS 50 ML IV SCH (11:21)
[2023-11-11 14:00] VITALS: BP 147/63; TEMP 98.2; O2SAT 93
[2023-11-11 21:10] VITALS: BP 148/65; TEMP 97; O2SAT 95
[2023-11-11] MEDS: ACETAMINOPHEN TAB 650MG DOSE (2X325MG) PO PRN (21:34)
[2023-11-11 22:00] VITALS: BP 137/67; TEMP 99; O2SAT 95
[2023-11-12 06:16] VITALS: BP 148/66; TEMP 97.7; O2SAT 98
[2023-11-12] MEDS: NICOTINE 21MG/24HR 1 EA TRANSDERMAL TD SCH (08:09)
[2023-11-12] MEDS: HEPARIN SOD (PORCINE) 5000UNITS/ML 1ML VIAL/SYRINGE SC SCH ×2 (08:09→21:04)
[2023-11-12] MEDS: NYSTATIN 100,000 UNITS/GM TOPICAL PWD 15GM TOP SCH ×2 (08:10→21:07)
[2023-11-12] MEDS: OMEPRAZOLE 20MG CAP PO SCH (08:10)
[2023-11-12] MEDS: SERTRALINE 100 MG TAB PO SCH (08:10)
[2023-11-12] MEDS: CETIRIZINE (ZyrTEC) 10 MG TAB PO SCH (08:10)
[2023-11-12] MEDS: LOSARTAN 50MG TABLET PO SCH (08:11)
[2023-11-12] MEDS: allopurinoL 100 MG TAB PO SCH (08:11)
[2023-11-12] MEDS: PERCOCET 5MG/325MG TAB PO PRN ×2 (08:11→21:07)
[2023-11-12] MEDS ORDERED: SODIUM CHLORIDE 0.9% INJ 10 ML SYR IV PRN (10:00)
[2023-11-12] MEDS: ERTAPENEM SODIUM 1 GM in NS MINI-BAG PLUS 50 ML IV SCH (11:17)
[2023-11-12 14:00] VITALS: BP 157/85; TEMP 97.7; O2SAT 96
[2023-11-12] MEDS: ACETAMINOPHEN TAB 650MG DOSE (2X325MG) PO PRN (14:48)
[2023-11-12] MEDS: SODIUM CHLORIDE 0.9% INJ 10 ML SYR IV SCH (17:33)
[2023-11-12 20:34] VITALS: BP 149/75; TEMP 98.8; O2SAT 94
[2023-11-13 05:02] VITALS: BP 137/59; TEMP 97.3; O2SAT 91
[2023-11-13] MEDS: ACETAMINOPHEN TAB 650MG DOSE (2X325MG) PO PRN (06:07)
[2023-11-13] MEDS: SODIUM CHLORIDE 0.9% INJ 10 ML SYR IV SCH (06:08)
[2023-11-13] MEDS: HEPARIN SOD (PORCINE) 5000UNITS/ML 1ML VIAL/SYRINGE SC SCH (09:00)
[2023-11-13] MEDS: CETIRIZINE (ZyrTEC) 10 MG TAB PO SCH (09:32)
[2023-11-13] MEDS: NICOTINE 21MG/24HR 1 EA TRANSDERMAL TD SCH (09:32)
[2023-11-13] MEDS: allopurinoL 100 MG TAB PO SCH (09:32)
[2023-11-13] MEDS: OMEPRAZOLE 20MG CAP PO SCH (09:32)
[2023-11-13] MEDS: SERTRALINE 100 MG TAB PO SCH (09:32)
[2023-11-13 09:34] VITALS: BP 131/63
[2023-11-13] MEDS: LOSARTAN 50MG TABLET PO SCH (09:34)
[2023-11-13] MEDS: NYSTATIN 100,000 UNITS/GM TOPICAL PWD 15GM TOP SCH (09:38)
[2023-11-13] MEDS ORDERED: ERTA1INJ3 IJ (10:31)
[2023-11-13] MEDS ORDERED: OXYC1TAB23 PO (10:31)
[2023-11-13] MEDS ORDERED: TOPR50TA PO (10:31)
[2023-11-13] MEDS: ERTAPENEM SODIUM 1 GM in NS MINI-BAG PLUS 50 ML IV SCH (12:37)
== END 2023-11-13 15:37 | disposition home or self-care (01) | DRG 244 ==
LOC: M ED 08:31 → EDBD 08:31 → M ED INP 15:35 → ENRESERV 16:02 → M PCU 16:40 → M MSPAV 11-07 18:17
PROVIDERS: ADMIT Student in an Organized Health Care Education/Training Program; ATTEND Internal Medicine
DX: K57.20 Diverticulitis of large intestine with perforation and abscess without bleeding (principal); U07.1 COVID-19; N17.9 Acute kidney failure, unspecified; E83.42 Hypomagnesemia; N18.9 Chronic kidney disease, unspecified; G47.33 Obstructive sleep apnea (adult) (pediatric); F32.A Depression, unspecified; K21.9 Gastro-esophageal reflux disease without esophagitis; M10.9 Gout, unspecified; I10 Essential (primary) hypertension; Z79.899 Other long term (current) drug therapy; E78.5 Hyperlipidemia, unspecified; G40.909 Epilepsy, unspecified, not intractable, without status epilepticus; F17.200 Nicotine dependence, unspecified, uncomplicated; R33.9 Retention of urine, unspecified

== ENCOUNTER 2023-11-24 12:21 | Inpatient (IN) | payer OTHER ==
[~2023-11-24] VITALS: Ht 160 cm; Wt 79.5 kg
[~2023-11-24 12:21] MED LIST changes: -NICO21DI38 TD
[2023-11-24] MEDS: ONDANSETRON 4MG 2ML VIAL IV ONE (13:01)
[2023-11-24] MEDS: MORPHINE 4 MG/ML 1ML VIAL IV PRN (13:04)
[2023-11-24 13:19] LABS: BASO % 0.4 % (0.0-1.0); EOS # 0.1 10^3/uL (0.0-0.5); EOS % 0.7 % (0.0-3.0); HEMOGLOBIN 10.5 g/dl (12.0-15.5); LYMPH # 1.7 10^3/uL (1.5-5.0); LYMPH % 15.4 % (24.0-44.0); MEAN CORPUSCULAR HEMOGLOBIN 26.3 pg (27.0-33.0); MEAN CORPUSCULAR HGB CONC 31.8 g/dl (32.0-36.5); MEAN CORPUSCULAR VOLUME 82.7 fl (80.0-96.0); MONO # 0.8 10^3/uL (0.0-0.8); MONO % 6.6 % (2.0-8.0); NEUTROPHILS # 8.7 10^3/uL (1.5-8.5); NEUTROPHILS % 76.5 % (36.0-66.0); PLATELET COUNT, AUTOMATED 329 10^3/uL (150-450); RED BLOOD COUNT 3.99 10^6/uL (4.00-5.40); WHITE BLOOD COUNT 11.3 10^3/uL (4.0-10.0)
[2023-11-24 13:29] LABS: INR 1.35; PROTHROMBIN TIME 16.2 SECONDS (12.5-14.5)
[2023-11-24 13:43] LABS: ALBUMIN 2.9 G/DL (3.2-5.2); ALKALINE PHOSPHATASE 136 U/L (46-116); ALT/SGPT < 9 U/L (7.0-40); AST/SGOT < 8 U/L (<34); BILIRUBIN,TOTAL 0.2 MG/DL (0.3-1.2); BLOOD UREA NITROGEN 53 MG/DL (9-23); CALCIUM LEVEL 9.4 MG/DL (8.3-10.6); CARBON DIOXIDE LEVEL 24 MMOL/L (20-31); CHLORIDE LEVEL 101 MMOL/L (98-107); CREATININE FOR GFR 2.39 MG/DL (0.55-1.30); GLOMERULAR FILTRATION RATE 21.7 (>45); GLUCOSE, FASTING 124 MG/DL (74-106); POTASSIUM SERUM 4.3 MMOL/L (3.5-5.1); SODIUM LEVEL 135 MMOL/L (136-145); TOTAL PROTEIN 7.3 G/DL (5.7-8.2)
[2023-11-24] MEDS: NS 1,000 ML IV SCH (15:19)
[2023-11-24] MEDS ORDERED: TOPR50TA PO (17:10)
[2023-11-24] MEDS ORDERED: NICO21DI38 TD (17:10)
[2023-11-24] MEDS ORDERED: HOME MED LIST COMPLETE! XX SCH (17:15)
[2023-11-24] MEDS: DOCUSATE SODIUM 100MG CAPSULE PO SCH (20:17)
[2023-11-24] MEDS: SENNA 8.6 MG TAB (SENOKOT) PO SCH (20:17)
[2023-11-25] MEDS: HYDROMORPHONE HCL 0.5 MG/ 0.5 ML SYRINGE IV PRN (00:12)
[2023-11-25] MEDS: MOM 30ML SUSPENSION UDC PO SCH (08:56)
[2023-11-25] MEDS: NICOTINE 21MG/24HR 1 EA TRANSDERMAL TD SCH (08:56)
[2023-11-25 08:57] LABS: CALCIUM LEVEL 8.8 MG/DL (8.3-10.6); CREATININE FOR GFR 1.99 MG/DL (0.55-1.30); GLOMERULAR FILTRATION RATE 26.9 (>45); POTASSIUM SERUM 4.5 MMOL/L (3.5-5.1)
[2023-11-25] MEDS: METOPROLOL SUCC (TopROL XL) 50MG **XL** TAB PO SCH (08:57)
[2023-11-25] MEDS: CETIRIZINE (ZyrTEC) 10 MG TAB PO SCH (08:57)
[2023-11-25] MEDS: OMEPRAZOLE 20MG CAP PO SCH (08:58)
[2023-11-25 13:00] VITALS: BP 124/64; TEMP 97.9; O2SAT 94
[2023-11-25 14:00] VITALS: BP 122/64; TEMP 97.9; O2SAT 94
[2023-11-25] MEDS: ERTAPENEM SODIUM 1 GM in NS MINI-BAG PLUS 50 ML IV SCH (16:30)
[2023-11-25 19:59] VITALS: BP 143/66; TEMP 98.8; O2SAT 95
[2023-11-26] VITALS (8 sets, daily range): BP systolic 142–158; BP diastolic 58–88; TEMP 96.5–98.6; O2SAT 94–96
[2023-11-26 06:36] LABS: BASO % 0.4 % (0.0-1.0); EOS # 0.1 10^3/uL (0.0-0.5); EOS % 1.4 % (0.0-3.0); HEMATOCRIT 28.9 % (36.0-47.0); HEMOGLOBIN 9.3 g/dl (12.0-15.5); LYMPH # 1.6 10^3/uL (1.5-5.0); LYMPH % 21.1 % (24.0-44.0); MEAN CORPUSCULAR HEMOGLOBIN 26.6 pg (27.0-33.0); MEAN CORPUSCULAR HGB CONC 32.2 g/dl (32.0-36.5); MEAN CORPUSCULAR VOLUME 82.6 fl (80.0-96.0); MONO # 0.8 10^3/uL (0.0-0.8); MONO % 10.5 % (2.0-8.0); NEUTROPHILS # 5.1 10^3/uL (1.5-8.5); NEUTROPHILS % 66.2 % (36.0-66.0); PLATELET COUNT, AUTOMATED 261 10^3/uL (150-450); WHITE BLOOD COUNT 7.7 10^3/uL (4.0-10.0)
[2023-11-26] MEDS: MORPHINE 2 MG/ML 1ML VIAL IV PRN (06:39)
[2023-11-26 07:00] LABS: CALCIUM LEVEL 8.7 MG/DL (8.3-10.6); CREATININE FOR GFR 1.61 MG/DL (0.55-1.30); GLOMERULAR FILTRATION RATE 34.3 (>45); MAGNESIUM LEVEL 2.1 MG/DL (1.8-2.4); POTASSIUM SERUM 4.4 MMOL/L (3.5-5.1)
[2023-11-26] MEDS ORDERED: oxyCODONE 5MG TAB PO PRN (13:05)
[2023-11-26] MEDS ORDERED: HYDROMORPHONE HCL 0.5 MG/ 0.5 ML SYRINGE IV PRN (13:05)
[2023-11-26] MEDS ORDERED: fentaNYL 100 MCG/2 ML INJECTION IV PRN (13:05)
[2023-11-26] MEDS ORDERED: ONDANSETRON 4MG 2ML VIAL As Ordered ONE (13:37)
[2023-11-26] MEDS: ONDANSETRON 4MG 2ML VIAL IV PRN (13:43)
[2023-11-26] MEDS: NS IV STA (14:11)
[2023-11-26] MEDS: ALVIMOPAN 12 MG CAPSULE (ENTEREG) PO SCH (20:20)
[2023-11-26] MEDS: LR 1,000 ML IV SCH (23:30)
[2023-11-27] VITALS (7 sets, daily range): BP systolic 130–170; BP diastolic 62–80; TEMP 97.2–97.9; O2SAT 94–95
[2023-11-27 06:41] LABS: CALCIUM LEVEL 8.9 MG/DL (8.3-10.6); CREATININE FOR GFR 1.61 MG/DL (0.55-1.30); GLOMERULAR FILTRATION RATE 34.3 (>45); MAGNESIUM LEVEL 2.3 MG/DL (1.8-2.4); POTASSIUM SERUM 4.9 MMOL/L (3.5-5.1)
[2023-11-28 05:40] VITALS: BP 134/62; TEMP 97.6; O2SAT 94
[2023-11-28 06:27] LABS: CALCIUM LEVEL 8.5 MG/DL (8.3-10.6); CREATININE FOR GFR 1.33 MG/DL (0.55-1.30); GLOMERULAR FILTRATION RATE 42.8 (>45); POTASSIUM SERUM 4.2 MMOL/L (3.5-5.1)
[2023-11-28] MEDS: HEPARIN SOD (PORCINE) 5000UNITS/ML 1ML VIAL/SYRINGE SC SCH (08:32)
[2023-11-28 08:34] LABS: HEMATOCRIT 27.6 % (36.0-47.0); HEMOGLOBIN 8.8 g/dl (12.0-15.5)
[2023-11-28 14:00] VITALS: BP 152/79; TEMP 98.1; O2SAT 94
[2023-11-28 14:32] LABS: C REACTIVE PROTEIN QUANTITATIV 13.3 MG/DL (<1.0)
[2023-11-28] MEDS: ERTAPENEM SODIUM 1 GM in NS MINI-BAG PLUS 50 ML IV SCH (16:27)
[2023-11-28 18:41] VITALS: BP 151/79; TEMP 98.1; O2SAT 95
[2023-11-28 20:26] VITALS: BP 153/79; TEMP 97.7; O2SAT 94
[2023-11-29] MEDS ORDERED: SIMETHICONE 80MG CHEW TAB PO PRN (01:20)
[2023-11-29 04:59] VITALS: BP 155/79; TEMP 97.5; O2SAT 94
[2023-11-29 06:02] LABS: BASO % 0.4 % (0.0-1.0); EOS # 0.2 10^3/uL (0.0-0.5); EOS % 2.2 % (0.0-3.0); HEMOGLOBIN 9.2 g/dl (12.0-15.5); LYMPH # 1.6 10^3/uL (1.5-5.0); LYMPH % 23.8 % (24.0-44.0); MEAN CORPUSCULAR HEMOGLOBIN 25.8 pg (27.0-33.0); MEAN CORPUSCULAR HGB CONC 31.7 g/dl (32.0-36.5); MEAN CORPUSCULAR VOLUME 81.2 fl (80.0-96.0); MONO # 0.6 10^3/uL (0.0-0.8); NEUTROPHILS # 4.5 10^3/uL (1.5-8.5); NEUTROPHILS % 65.2 % (36.0-66.0); PLATELET COUNT, AUTOMATED 283 10^3/uL (150-450); RED BLOOD COUNT 3.57 10^6/uL (4.00-5.40); WHITE BLOOD COUNT 6.8 10^3/uL (4.0-10.0)
[2023-11-29 08:40] LABS: CALCIUM LEVEL 8.2 MG/DL (8.3-10.6); CREATININE FOR GFR 1.14 MG/DL (0.55-1.30); GLOMERULAR FILTRATION RATE 51.1 (>45); MAGNESIUM LEVEL 1.8 MG/DL (1.8-2.4)
[2023-11-29 14:00] VITALS: BP 141/88; TEMP 97.7; O2SAT 93
[2023-11-29 19:58] VITALS: BP 152/79; TEMP 98.1; O2SAT 95
[2023-11-30] MEDS: RAMELTEON 8 MG TAB (ROZEREM) PO PRN (03:01)
[2023-11-30 06:24] VITALS: BP 138/67; TEMP 97.3; O2SAT 94
[2023-11-30 06:41] LABS: CALCIUM LEVEL 8.5 MG/DL (8.3-10.6); CREATININE FOR GFR 1.13 MG/DL (0.55-1.30); GLOMERULAR FILTRATION RATE 51.6 (>45); MAGNESIUM LEVEL 1.6 MG/DL (1.8-2.4)
[2023-11-30] MEDS: MAG SULF 1GM/100ML (MAG RUN) 1 GM in IV 1 EA IV SCH (09:16)
[2023-11-30 14:00] VITALS: BP 139/71; TEMP 98.1; O2SAT 92
[2023-11-30 20:32] VITALS: BP 135/65; TEMP 97.9; O2SAT 94
[2023-12-01 06:00] VITALS: BP 141/72; TEMP 98.1; O2SAT 96
[2023-12-01 07:01] LABS: CALCIUM LEVEL 8.5 MG/DL (8.3-10.6); CREATININE FOR GFR 1.06 MG/DL (0.55-1.30); GLOMERULAR FILTRATION RATE 55.6 (>45); MAGNESIUM LEVEL 1.8 MG/DL (1.8-2.4); POTASSIUM SERUM 3.8 MMOL/L (3.5-5.1)
[2023-12-01] MEDS: PERCOCET 5MG/325MG TAB PO PRN (09:05)
[2023-12-01 14:00] VITALS: BP 147/43; TEMP 97.7; O2SAT 93
[2023-12-01 22:16] VITALS: BP 151/62; TEMP 98; O2SAT 94
[2023-12-02 05:50] VITALS: BP 146/72; TEMP 98.2; O2SAT 93
[2023-12-02 06:22] LABS: BLOOD UREA NITROGEN 19 MG/DL (9-23); CALCIUM LEVEL 8.4 MG/DL (8.3-10.6); CARBON DIOXIDE LEVEL 25 MMOL/L (20-31); CHLORIDE LEVEL 109 MMOL/L (98-107); CREATININE FOR GFR 1.15 MG/DL (0.55-1.30); GLOMERULAR FILTRATION RATE 50.6 (>45); GLUCOSE, FASTING 93 MG/DL (74-106); MAGNESIUM LEVEL 1.6 MG/DL (1.8-2.4); POTASSIUM SERUM 4.1 MMOL/L (3.5-5.1); SODIUM LEVEL 142 MMOL/L (136-145)
[2023-12-02 13:37] VITALS: BP 141/73; TEMP 97.5; O2SAT 95
[2023-12-02 15:46] LABS: ALBUMIN 2.3 G/DL (3.2-5.2); ALKALINE PHOSPHATASE 125 U/L (46-116); ALT/SGPT < 9 U/L (7.0-40); AST/SGOT 10 U/L (<34); BILIRUBIN,DIRECT < 0.1 MG/DL (<0.4); BILIRUBIN,TOTAL 0.2 MG/DL (0.3-1.2)
[2023-12-02] MEDS: MAG SULF 1GM/100ML (MAG RUN) 1 GM in IV 1 EA IV SCH (16:38)
[2023-12-02] MEDS ORDERED: ISOVUE-370 76% 100ML VIAL As Ordered ONE (16:49)
[2023-12-02] MEDS: MORPHINE 2 MG/ML 1ML VIAL IV PRN (16:49)
[2023-12-02 20:04] VITALS: BP 141/72; TEMP 97.9; O2SAT 97
[2023-12-02] MEDS: PERCOCET 5MG/325MG TAB PO PRN (20:09)
[2023-12-03 01:55] VITALS: O2SAT 81
[2023-12-03 02:04] VITALS: O2SAT 96
[2023-12-03] MEDS ORDERED: SODIUM CHLORIDE 0.9% INJ 10 ML SYR IV PRN (02:25)
[2023-12-03] MEDS: SODIUM CHLORIDE 0.9% INJ 10 ML SYR IV SCH (04:56)
[2023-12-03 06:00] VITALS: BP 146/71; TEMP 97.3; O2SAT 96
[2023-12-03 06:04] LABS: HEMATOCRIT 29.5 % (36.0-47.0); HEMOGLOBIN 9.4 g/dl (12.0-15.5); MEAN CORPUSCULAR HEMOGLOBIN 26.1 pg (27.0-33.0); MEAN CORPUSCULAR HGB CONC 31.9 g/dl (32.0-36.5); MEAN CORPUSCULAR VOLUME 81.9 fl (80.0-96.0); PLATELET COUNT, AUTOMATED 219 10^3/uL (150-450); WHITE BLOOD COUNT 6.9 10^3/uL (4.0-10.0)
[2023-12-03 06:33] LABS: CALCIUM LEVEL 8.9 MG/DL (8.3-10.6); CREATININE FOR GFR 1.13 MG/DL (0.55-1.30); GLOMERULAR FILTRATION RATE 51.6 (>45); POTASSIUM SERUM 4.1 MMOL/L (3.5-5.1)
[2023-12-03 14:00] VITALS: BP 118/73; TEMP 97.7; O2SAT 92
[2023-12-03 21:50] VITALS: BP 112/60; TEMP 98.1; O2SAT 99
[2023-12-04 05:32] VITALS: BP 115/61; TEMP 97.5; O2SAT 98
[2023-12-04 09:22] VITALS: BP 121/66
[2023-12-04 14:00] VITALS: BP 118/64; TEMP 97.7; O2SAT 93
[2023-12-04 21:29] VITALS: BP 118/59; TEMP 97.9; O2SAT 92
[2023-12-05 06:00] VITALS: BP 131/71; TEMP 97.5; O2SAT 92
[2023-12-05] MEDS ORDERED: SIME80TA16 PO (09:53)
[2023-12-05] MEDS: NEOSPORIN OINT 0.9 GM PKT TOP ONE (12:24)
== END 2023-12-05 12:54 | disposition home health service (06) | DRG 221 ==
LOC: M ED 12:21 → M ED INP 15:26 → ENRESERV 11-25 11:37 → M MSPAV 11-25 12:52
PROVIDERS: ADMIT Student in an Organized Health Care Education/Training Program; ATTEND Internal Medicine
PROC: 0D9W0ZZ Drainage of Peritoneum, Open Approach (ICD-10-PCS; 2023-11-26)
PROC: 0DBN0ZZ Excision of Sigmoid Colon, Open Approach (ICD-10-PCS; principal; 2023-11-26 11:15)
PROC: 0D1N0Z4 Bypass Sigmoid Colon to Cutaneous, Open Approach (ICD-10-PCS; 2023-11-26 11:15)
DX: K57.20 Diverticulitis of large intestine with perforation and abscess without bleeding (principal); K65.1 Peritoneal abscess; N17.9 Acute kidney failure, unspecified; S72.114A Nondisplaced fracture of greater trochanter of right femur, initial encounter for closed fracture; E78.5 Hyperlipidemia, unspecified; G40.909 Epilepsy, unspecified, not intractable, without status epilepticus; G47.33 Obstructive sleep apnea (adult) (pediatric); I12.9 Hypertensive chronic kidney disease with stage 1 through stage 4 chronic kidney disease, or unspecified chronic kidney disease; K21.9 Gastro-esophageal reflux disease without esophagitis; M10.9 Gout, unspecified; N18.9 Chronic kidney disease, unspecified; W18.30XA Fall on same level, unspecified, initial encounter; Y92.009 Unspecified place in unspecified non-institutional (private) residence as the place of occurrence of the external cause; Z79.899 Other long term (current) drug therapy

== ENCOUNTER → 2023-11-24 | Outpatient (CLI) | payer OTHER ==
[~2023-11-24] MED LIST changes: +ERTA1INJ3 IJ; +FENO48TA8 PO; +FENO54TA2 PO; +MOME0.1C3 TOP; +NICO21DI38 TD; +NYST1POW9 TOP; +OXYC1TAB23 PO; +TOPR50TA PO
[2023-11-24 12:30] LABS: BASO # 0.1 10^3/uL (0.0-0.2); BASO % 0.4 % (0.0-1.0); EOS # 0.1 10^3/uL (0.0-0.5); EOS % 0.9 % (0.0-3.0); HEMATOCRIT 35.1 % (36.0-47.0); HEMOGLOBIN 11.1 g/dl (12.0-15.5); LYMPH # 2.3 10^3/uL (1.5-5.0); LYMPH % 18.1 % (24.0-44.0); MEAN CORPUSCULAR HEMOGLOBIN 26.2 pg (27.0-33.0); MEAN CORPUSCULAR HGB CONC 31.6 g/dl (32.0-36.5); MEAN CORPUSCULAR VOLUME 82.8 fl (80.0-96.0); MONO # 1.2 10^3/uL (0.0-0.8); NEUTROPHILS # 9.2 10^3/uL (1.5-8.5); NEUTROPHILS % 71.2 % (36.0-66.0); PLATELET COUNT, AUTOMATED 405 10^3/uL (150-450); RED BLOOD COUNT 4.24 10^6/uL (4.00-5.40); WHITE BLOOD COUNT 12.9 10^3/uL (4.0-10.0)
[2023-11-24 12:53] LABS: ERYTHROCYTE SEDIMENTATION RATE 112 mm/hr (0-30)
[2023-11-24 13:02] LABS: ALBUMIN 3.1 G/DL (3.2-5.2); ALKALINE PHOSPHATASE 144 U/L (46-116); ALT/SGPT < 9 U/L (7.0-40); AST/SGOT < 8 U/L (<34); BILIRUBIN,TOTAL 0.2 MG/DL (0.3-1.2); BLOOD UREA NITROGEN 53 MG/DL (9-23); CALCIUM LEVEL 9.7 MG/DL (8.3-10.6); CARBON DIOXIDE LEVEL 26 MMOL/L (20-31); CHLORIDE LEVEL 101 MMOL/L (98-107); GLOMERULAR FILTRATION RATE 21.6 (>45); GLUCOSE, FASTING 99 MG/DL (74-106); POTASSIUM SERUM 4.5 MMOL/L (3.5-5.1); SODIUM LEVEL 135 MMOL/L (136-145); TOTAL PROTEIN 7.7 G/DL (5.7-8.2)
== END ==
LOC: M PLAIMG 10:48
PROVIDERS: ATTEND Internal Medicine Infectious Disease
DX: M25.551 Pain in right hip (principal); K65.1 Peritoneal abscess

== ENCOUNTER → 2023-12-15 | Outpatient (CLI) | payer OTHER ==
[~2023-12-15] MED LIST changes: +NICO21DI38 TD; +SIME80TA16 PO
[2023-12-15 14:39] LABS: BASO # 0.1 10^3/uL (0.0-0.2); BASO % 0.8 % (0.0-1.0); EOS # 0.2 10^3/uL (0.0-0.5); EOS % 3.4 % (0.0-3.0); HEMATOCRIT 36.8 % (36.0-47.0); LYMPH # 3.1 10^3/uL (1.5-5.0); LYMPH % 44.1 % (24.0-44.0); MEAN CORPUSCULAR HEMOGLOBIN 26.1 pg (27.0-33.0); MEAN CORPUSCULAR HGB CONC 29.9 g/dl (32.0-36.5); MEAN CORPUSCULAR VOLUME 87.2 fl (80.0-96.0); MONO # 0.6 10^3/uL (0.0-0.8); MONO % 8.5 % (2.0-8.0); NEUTROPHILS % 42.9 % (36.0-66.0); PLATELET COUNT, AUTOMATED 267 10^3/uL (150-450); RED BLOOD COUNT 4.22 10^6/uL (4.00-5.40); WHITE BLOOD COUNT 7.1 10^3/uL (4.0-10.0)
[2023-12-15 15:07] LABS: ALBUMIN 3.6 G/DL (3.2-5.2); ALKALINE PHOSPHATASE 98 U/L (46-116); ALT/SGPT < 9 U/L (7.0-40); AST/SGOT 12 U/L (<34); BILIRUBIN,TOTAL 0.3 MG/DL (0.3-1.2); BLOOD UREA NITROGEN 25 MG/DL (9-23); CALCIUM LEVEL 9.7 MG/DL (8.3-10.6); CARBON DIOXIDE LEVEL 26 MMOL/L (20-31); CHLORIDE LEVEL 108 MMOL/L (98-107); CREATININE FOR GFR 1.49 MG/DL (0.55-1.30); GLOMERULAR FILTRATION RATE 37.5 (>45); GLUCOSE, FASTING 92 MG/DL (74-106); IRON (FE) 51 UG/DL (50-170); PERCENT SATURATION 12.6 % (13.2-45.0); POTASSIUM SERUM 4.3 MMOL/L (3.5-5.1); SODIUM LEVEL 140 MMOL/L (136-145); TOTAL IRON BINDING CAPACITY 405 UG/DL (250-425); TOTAL PROTEIN 7.5 G/DL (5.7-8.2)
[2023-12-15 15:08] LABS: FERRITIN 93.2 NG/ML (7.3-270.7); FOLATE 6.9 NG/ML (>5.4)
[2023-12-15 15:09] LABS: VITAMIN B12 LEVEL 241 PG/ML (211-911)
== END ==
LOC: M PLALAB 10:02
PROVIDERS: ATTEND Nurse Practitioner Family
DX: N17.9 Acute kidney failure, unspecified (principal); D64.9 Anemia, unspecified

== ENCOUNTER → 2023-12-15 | Outpatient (CLI) | payer OTHER | LOC: M SOG 10:33 | PROVIDERS: ATTEND Orthopaedic Surgery | DX: M25.551 Pain in right hip (principal) ==

== ENCOUNTER → 2024-01-21 | Outpatient (CLI) | payer OTHER | LOC: M SOG 08:00 | PROVIDERS: ATTEND Orthopaedic Surgery | DX: M25.551 Pain in right hip (principal) ==

== ENCOUNTER → 2024-02-25 | Outpatient (CLI) | payer OTHER | LOC: M SOG 10:37 | PROVIDERS: ATTEND Orthopaedic Surgery | DX: M25.551 Pain in right hip (principal) ==

== ENCOUNTER → 2024-03-08 | Outpatient (REF) | payer OTHER ==
[2024-03-08 17:23] LABS: BASO # 0.1 10^3/uL (0.0-0.2); BASO % 0.6 % (0.0-1.0); EOS # 0.2 10^3/uL (0.0-0.5); EOS % 1.8 % (0.0-3.0); HEMATOCRIT 41.6 % (36.0-47.0); HEMOGLOBIN 13.1 g/dl (12.0-15.5); LYMPH % 46.2 % (24.0-44.0); MEAN CORPUSCULAR HEMOGLOBIN 27.2 pg (27.0-33.0); MEAN CORPUSCULAR HGB CONC 31.5 g/dl (32.0-36.5); MEAN CORPUSCULAR VOLUME 86.5 fl (80.0-96.0); MONO # 0.6 10^3/uL (0.0-0.8); NEUTROPHILS # 3.8 10^3/uL (1.5-8.5); PLATELET COUNT, AUTOMATED 197 10^3/uL (150-450); RED BLOOD COUNT 4.81 10^6/uL (4.00-5.40); WHITE BLOOD COUNT 8.6 10^3/uL (4.0-10.0)
[2024-03-08 17:47] LABS: ALBUMIN 4.1 G/DL (3.2-5.2); BILIRUBIN,TOTAL 0.3 MG/DL (0.3-1.2); CHOLESTEROL RISK RATIO 9.25 (<5); CREATININE FOR GFR 2.01 MG/DL (0.55-1.30); GLOMERULAR FILTRATION RATE 26.6 (>45); HDL CHOLESTEROL 32.4 MG/DL (>40); LDL CHOLESTEROL 202.8 MG/DL (<100); NON-HDL-C 267.6 MG/DL; POTASSIUM SERUM 4.5 MMOL/L (3.5-5.1)
== END ==
LOC: M LABWUC 16:33
PROVIDERS: ATTEND Nurse Practitioner Family
DX: Z01.818 Encounter for other preprocedural examination (principal); D64.9 Anemia, unspecified

== ENCOUNTER → 2024-03-30 | Outpatient (CLI) | payer OTHER ==
[~2024-03-30] MED LIST changes: +CHOL12508 PO
== END ==
LOC: M RAD 15:15
PROVIDERS: ATTEND Nurse Practitioner Family
DX: Z87.891 Personal history of nicotine dependence (principal)

== ENCOUNTER 2024-04-06 06:16 | Inpatient (IN) | payer OTHER ==
[~2024-04-06] VITALS: Ht 160 cm; Wt 78.7 kg
[2024-04-06] VITALS (11 sets, daily range): BP systolic 123–158; BP diastolic 57–83; TEMP 97.2–98.1; O2SAT 93–97
[2024-04-06] MEDS ORDERED: NEOM500T PO (06:41)
[2024-04-06] MEDS ORDERED: METR-265 PO (06:41)
[2024-04-06] MEDS ORDERED: MIRA3350 PO (06:41)
[2024-04-06] MEDS ORDERED: PITA4TAB2 PO (06:41)
[2024-04-06] MEDS ORDERED: KETOROLAC 60MG 2ML VIAL As Ordered ONE (07:16)
[2024-04-06] MEDS ORDERED: SUGAMMADEX SODIUM 500 MG/5 ML VIAL (BRIDION) As Ordered ONE (07:16)
[2024-04-06] MEDS: LR 1,000 ML IV SCH ×2 (07:16→14:01)
[2024-04-06] MEDS ORDERED: ACETAMINOPHEN 1000MG 100ML IV BAG As Ordered ONE (07:16)
[2024-04-06] MEDS ORDERED: LIDOCAINE 2% 100MG/5ML SDV (FOR ANES.) As Ordered ONE (07:16)
[2024-04-06] MEDS ORDERED: ROCURONIUM BROMIDE 50MG/5ML VIAL As Ordered ONE (07:16)
[2024-04-06] MEDS ORDERED: ONDANSETRON 4MG 2ML VIAL As Ordered ONE (07:16)
[2024-04-06] MEDS ORDERED: propofoL 200 MG/20 ML VIAL As Ordered ONE (07:16)
[2024-04-06] MEDS ORDERED: fentaNYL 100 MCG/2 ML INJECTION As Ordered ONE (07:17)
[2024-04-06] MEDS ORDERED: MIDAZOLAM INJ 2MG/2ML VIAL As Ordered ONE (07:17)
[2024-04-06] MEDS: ceFAZolin SOD 2 GM in IV 1 EA IV ONE (07:30)
[2024-04-06] MEDS ORDERED: ERGO500029 PO (07:44)
[2024-04-06] MEDS ORDERED: BISAC5TA PO (07:46)
[2024-04-06] MEDS ORDERED: DULC5TAB PO (07:49)
[2024-04-06] MEDS ORDERED: HOME MED LIST COMPLETE! XX SCH (07:50)
[2024-04-06] MEDS ORDERED: dexmedeTOMIDine (4MCG/ML)200MCG/50ML BTL (PRECEDEX) As Ordered ONE (08:36)
[2024-04-06] MEDS ORDERED: HYDROmorphone HCL 2MG/ML 1ML VIAL As Ordered ONE (08:40)
[2024-04-06] MEDS: GLUCAGON INJ 1MG VIAL As Ordered ONE (08:45)
[2024-04-06] MEDS ORDERED: fentaNYL 100 MCG/2 ML INJECTION IV PRN (11:00)
[2024-04-06] MEDS ORDERED: IPRATROPIUM 0.5MG/ALBUTEROL 2.5MG INH SOL UD 3ML (DUONEB) NEB PRN (11:00)
[2024-04-06] MEDS ORDERED: oxyCODONE 5MG TAB PO PRN (11:00)
[2024-04-06] MEDS ORDERED: ONDANSETRON 4MG 2ML VIAL IV PRN (11:00)
[2024-04-06] MEDS: ONDANSETRON 4MG 2ML VIAL IV PRN (12:27)
[2024-04-06] MEDS: PROMETHAZINE 25MG/ML 1ML VIAL IV PRN (12:36)
[2024-04-06] MEDS: HYDROMORPHONE HCL 0.5 MG/ 0.5 ML SYRINGE IV PRN (12:37)
[2024-04-06] MEDS: ALVIMOPAN 12 MG CAPSULE (ENTEREG) PO SCH (14:01)
[2024-04-06] MEDS: NS 1,000 ML IV SCH (14:01)
[2024-04-06] MEDS: IPRATROPIUM 0.5MG/ALBUTEROL 2.5MG INH SOL UD 3ML (DUONEB) NEB SCH (15:13)
[2024-04-06] MEDS: ceFAZolin SOD 1 GM in D5W MINI-BAG PLUS 50 ML IV SCH (16:12)
[2024-04-06] MEDS: KETOROLAC 30 MG/ML 1ML VIAL IV SCH (16:13)
[2024-04-06] MEDS: MORPHINE 2 MG/ML 1ML VIAL IV PRN (21:22)
[2024-04-07 01:51] VITALS: BP 139/54; TEMP 97.9; O2SAT 94
[2024-04-07] MEDS: MORPHINE 2 MG/ML 1ML VIAL IV PRN (04:15)
[2024-04-07 06:04] LABS: HEMATOCRIT 36.8 % (36.0-47.0); HEMOGLOBIN 11.7 g/dl (12.0-15.5); MEAN CORPUSCULAR HEMOGLOBIN 27.3 pg (27.0-33.0); MEAN CORPUSCULAR HGB CONC 31.8 g/dl (32.0-36.5); PLATELET COUNT, AUTOMATED 122 10^3/uL (150-450); RED BLOOD COUNT 4.28 10^6/uL (4.00-5.40); WHITE BLOOD COUNT 5.7 10^3/uL (4.0-10.0)
[2024-04-07 06:30] VITALS: BP 146/63; TEMP 97.3; O2SAT 95
[2024-04-07 06:30] LABS: CREATININE FOR GFR 1.44 MG/DL (0.55-1.30); POTASSIUM SERUM 3.9 MMOL/L (3.5-5.1)
[2024-04-07] MEDS: PANTOPRAZOLE 40MG VIAL IV SCH (08:34)
[2024-04-07] MEDS: NICOTINE 21MG/24HR 1 EA TRANSDERMAL TD SCH (08:35)
[2024-04-07 10:00] VITALS: BP 143/55; TEMP 97.3; O2SAT 92
[2024-04-07] MEDS: SIMETHICONE 80MG CHEW TAB PO SCH (10:08)
[2024-04-07] MEDS ORDERED: PILL CUTTER 1 EACH XX ONE (10:12)
[2024-04-07 14:11] VITALS: BP 162/61; TEMP 97.3; O2SAT 95
[2024-04-07 18:29] VITALS: BP 148/78; TEMP 97.7; O2SAT 94
[2024-04-07 21:00] VITALS: BP 143/65; TEMP 97.5; O2SAT 96
[2024-04-07] MEDS: oxyCODONE 5MG TAB PO STA (23:44)
[2024-04-08] VITALS (10 sets, daily range): BP systolic 131–152; BP diastolic 59–70; TEMP 97.3–97.7; O2SAT 84–99
[2024-04-08 07:38] LABS: HEMATOCRIT 32.9 % (36.0-47.0); HEMOGLOBIN 10.4 g/dl (12.0-15.5); MEAN CORPUSCULAR HEMOGLOBIN 27.2 pg (27.0-33.0); MEAN CORPUSCULAR HGB CONC 31.6 g/dl (32.0-36.5); MEAN CORPUSCULAR VOLUME 86.1 fl (80.0-96.0); PLATELET COUNT, AUTOMATED 112 10^3/uL (150-450); RED BLOOD COUNT 3.82 10^6/uL (4.00-5.40); WHITE BLOOD COUNT 4.7 10^3/uL (4.0-10.0)
[2024-04-08 07:51] LABS: CALCIUM LEVEL 8.2 MG/DL (8.3-10.6); CREATININE FOR GFR 1.25 MG/DL (0.55-1.30); GLOMERULAR FILTRATION RATE 45.9 (>45); POTASSIUM SERUM 3.8 MMOL/L (3.5-5.1)
[2024-04-08] MEDS: PERCOCET 5MG/325MG TAB PO PRN ×2 (12:50→22:16)
[2024-04-09 05:00] VITALS: BP 158/70; TEMP 97.5; O2SAT 97
[2024-04-09 05:57] LABS: HEMATOCRIT 31.6 % (36.0-47.0); HEMOGLOBIN 10.1 g/dl (12.0-15.5); MEAN CORPUSCULAR HEMOGLOBIN 27.5 pg (27.0-33.0); MEAN CORPUSCULAR VOLUME 86.1 fl (80.0-96.0); PLATELET COUNT, AUTOMATED 139 10^3/uL (150-450); RED BLOOD COUNT 3.67 10^6/uL (4.00-5.40); WHITE BLOOD COUNT 4.7 10^3/uL (4.0-10.0)
[2024-04-09 06:27] VITALS: BP 150/68; O2SAT 97
[2024-04-09 06:28] LABS: CALCIUM LEVEL 8.2 MG/DL (8.3-10.6); CREATININE FOR GFR 1.22 MG/DL (0.55-1.30); GLOMERULAR FILTRATION RATE 47.2 (>45); POTASSIUM SERUM 3.4 MMOL/L (3.5-5.1)
[2024-04-09 10:00] VITALS: BP 155/71; TEMP 97.5; O2SAT 96
[2024-04-09 14:00] VITALS: BP 147/68; TEMP 97.3; O2SAT 93
[2024-04-09 18:00] VITALS: BP 149/85; TEMP 97.3; O2SAT 97
[2024-04-09 20:09] VITALS: BP 148/58; TEMP 97.5; O2SAT 95
[2024-04-10 02:00] VITALS: BP 144/66; TEMP 97.2; O2SAT 94
[2024-04-10 05:23] VITALS: BP 146/78; TEMP 97.5; O2SAT 95
[2024-04-10 05:56] LABS: HEMATOCRIT 29.3 % (36.0-47.0); HEMOGLOBIN 9.5 g/dl (12.0-15.5); MEAN CORPUSCULAR HEMOGLOBIN 27.3 pg (27.0-33.0); MEAN CORPUSCULAR HGB CONC 32.4 g/dl (32.0-36.5); MEAN CORPUSCULAR VOLUME 84.2 fl (80.0-96.0); PLATELET COUNT, AUTOMATED 139 10^3/uL (150-450); RED BLOOD COUNT 3.48 10^6/uL (4.00-5.40); WHITE BLOOD COUNT 3.5 10^3/uL (4.0-10.0)
[2024-04-10 06:23] LABS: CALCIUM LEVEL 8.3 MG/DL (8.3-10.6); CREATININE FOR GFR 1.26 MG/DL (0.55-1.30); GLOMERULAR FILTRATION RATE 45.5 (>45); POTASSIUM SERUM 3.4 MMOL/L (3.5-5.1)
[2024-04-10 10:00] VITALS: BP 143/66; TEMP 97.9; O2SAT 93
[2024-04-10 14:00] VITALS: BP 160/70; TEMP 97.5; O2SAT 93
[2024-04-10 19:52] VITALS: BP 146/74; TEMP 97.7; O2SAT 95
[2024-04-11 05:14] VITALS: BP 142/68; TEMP 97.5; O2SAT 94
[2024-04-11 05:59] LABS: HEMATOCRIT 28.7 % (36.0-47.0); HEMOGLOBIN 9.2 g/dl (12.0-15.5); MEAN CORPUSCULAR HEMOGLOBIN 27.3 pg (27.0-33.0); MEAN CORPUSCULAR HGB CONC 32.1 g/dl (32.0-36.5); MEAN CORPUSCULAR VOLUME 85.2 fl (80.0-96.0); PLATELET COUNT, AUTOMATED 161 10^3/uL (150-450); RED BLOOD COUNT 3.37 10^6/uL (4.00-5.40); WHITE BLOOD COUNT 3.7 10^3/uL (4.0-10.0)
[2024-04-11 06:09] LABS: CALCIUM LEVEL 8.3 MG/DL (8.3-10.6); CREATININE FOR GFR 1.22 MG/DL (0.55-1.30); GLOMERULAR FILTRATION RATE 47.2 (>45); POTASSIUM SERUM 3.7 MMOL/L (3.5-5.1)
[2024-04-11 14:00] VITALS: BP 158/64; TEMP 97.2; O2SAT 95
[2024-04-11 21:07] VITALS: BP 158/68; TEMP 97.7; O2SAT 96
[2024-04-12 05:04] VITALS: BP 158/76; TEMP 97.5; O2SAT 96
[2024-04-12 06:00] LABS: HEMATOCRIT 29.3 % (36.0-47.0); HEMOGLOBIN 9.3 g/dl (12.0-15.5); MEAN CORPUSCULAR HGB CONC 31.7 g/dl (32.0-36.5); MEAN CORPUSCULAR VOLUME 84.9 fl (80.0-96.0); PLATELET COUNT, AUTOMATED 182 10^3/uL (150-450); RED BLOOD COUNT 3.45 10^6/uL (4.00-5.40); WHITE BLOOD COUNT 4.4 10^3/uL (4.0-10.0)
[2024-04-12 06:26] LABS: CALCIUM LEVEL 8.2 MG/DL (8.3-10.6); CREATININE FOR GFR 1.16 MG/DL (0.55-1.30); GLOMERULAR FILTRATION RATE 50.1 (>45); POTASSIUM SERUM 3.8 MMOL/L (3.5-5.1)
[2024-04-12] MEDS ORDERED: PERCOCET PO (09:29)
== END 2024-04-12 11:32 | disposition home or self-care (01) | DRG 221 ==
LOC: M OR 06:16 → M MSPAV 13:35
PROVIDERS: ADMIT Surgery; ATTEND Surgery
PROC: 0DNW4ZZ Release Peritoneum, Percutaneous Endoscopic Approach (ICD-10-PCS; 2024-04-06)
PROC: 0DBE4ZZ Excision of Large Intestine, Percutaneous Endoscopic Approach (ICD-10-PCS; principal; 2024-04-06 07:30)
DX: Z43.3 Encounter for attention to colostomy (principal); I10 Essential (primary) hypertension; E78.5 Hyperlipidemia, unspecified; K21.9 Gastro-esophageal reflux disease without esophagitis; K66.0 Peritoneal adhesions (postprocedural) (postinfection); Z79.899 Other long term (current) drug therapy; M10.9 Gout, unspecified; R56.9 Unspecified convulsions; M19.90 Unspecified osteoarthritis, unspecified site; G47.30 Sleep apnea, unspecified; F32.A Depression, unspecified; F17.200 Nicotine dependence, unspecified, uncomplicated

== ENCOUNTER → 2024-06-28 | Outpatient (CLI) | payer MEDICARE, OTHER ==
[~2024-06-28] MED LIST changes: +BISAC5TA PO; +DULC5TAB PO; +ERGO500029 PO; +MIRA3350 PO; +NEOM500T PO; +PERCOCET PO; +PITA4TAB2 PO
== END ==
LOC: M RAD 07:32
PROVIDERS: ATTEND Nurse Practitioner Family
DX: R91.1 Solitary pulmonary nodule (principal)

== ENCOUNTER → 2025-03-08 | Outpatient (CLI) | payer MEDICARE ==
[~2025-03-08] MED LIST changes: +GABA-1172 PO; -GABA-282 PO; +NYST1POW3 TOP; -NYST1POW9 TOP
[2025-03-08 13:38] LABS: ALBUMIN 4.4 G/DL (3.2-5.2); ALKALINE PHOSPHATASE 69 U/L (35-104); ALT/SGPT 12 U/L (7.0-40); AST/SGOT 11 U/L (<34); BILIRUBIN,TOTAL 0.3 MG/DL (0.3-1.2); BLOOD UREA NITROGEN 30 MG/DL (9-23); CALCIUM LEVEL 10.5 MG/DL (8.3-10.6); CARBON DIOXIDE LEVEL 29 MMOL/L (20-31); CHLORIDE LEVEL 107 MMOL/L (98-107); CHOLESTEROL LEVEL 272 MG/DL (<200); CHOLESTEROL RISK RATIO 10.03 (<5); CREATININE FOR GFR 1.85 MG/DL (0.55-1.30); GLOMERULAR FILTRATION RATE 29.9 (>45); GLUCOSE, FASTING 104 MG/DL (74-106); HDL CHOLESTEROL 27.1 MG/DL (>40); HEMOGLOBIN A1c 5.5 % (4.0-6.0); NON-HDL-C 244.9 MG/DL; POTASSIUM SERUM 4.2 MMOL/L (3.5-5.1); SODIUM LEVEL 142 MMOL/L (136-145); TOTAL PROTEIN 7.8 G/DL (5.7-8.2); TRIGLYCERIDES LEVEL 474 MG/DL (<150)
== END ==
LOC: M WUC 09:41
PROVIDERS: ATTEND Nurse Practitioner Family
DX: I10 Essential (primary) hypertension (principal); E78.2 Mixed hyperlipidemia

== ENCOUNTER → 2025-07-07 | Outpatient (CLI) | payer MEDICARE, OTHER ==
[~2025-07-07] MED LIST changes: -IBUP-1022 PO; +IBUP600T42 PO
[2025-07-07 17:55] LABS: BASO # 0.1 10^3/uL (0.0-0.2); BASO % 0.4 % (0.0-1.0); EOS # 0.3 10^3/uL (0.0-0.5); EOS % 2.2 % (0.0-3.0); LYMPH # 3.2 10^3/uL (1.5-5.0); LYMPH % 25.0 % (24.0-44.0); MONO # 1.1 10^3/uL (0.0-0.8); MONO % 8.2 % (2.0-8.0); NEUTROPHILS # 8.2 10^3/uL (1.5-8.5); NEUTROPHILS % 63.8 % (36.0-66.0); PLATELET COUNT, AUTOMATED 311 10^3/uL (150-450)
[2025-07-07 18:36] LABS: ALT/SGPT 10.0 U/L (7.0-40); AST/SGOT 14.0 U/L (<34); CALCIUM LEVEL 9.5 MG/DL (8.3-10.6); CARBON DIOXIDE LEVEL 26.0 MMOL/L (20-31); CHLORIDE LEVEL 102.0 MMOL/L (98-107); CREATININE FOR GFR 2.09 MG/DL (0.55-1.30); GLOMERULAR FILTRATION RATE 25.7 (>45); POTASSIUM SERUM 3.9 MMOL/L (3.5-5.1); SODIUM LEVEL 137.0 MMOL/L (136-145)
== END ==
LOC: M WUC 14:40
PROVIDERS: ATTEND Registered Nurse
DX: Z01.818 Encounter for other preprocedural examination (principal)

== ENCOUNTER → 2025-08-29 | Outpatient (CLI) | payer MEDICARE, OTHER ==
[~2025-08-29] MED LIST changes: -CHOL12508 PO; +LIVA1TAB PO; +LIVA4TAB PO; +MORP-69 PO; +[UNRECOGNIZED DRUG - CODE] PO
== END ==
LOC: M ONCR 08:46
PROVIDERS: ATTEND General Practice
DX: C21.8 Malignant neoplasm of overlapping sites of rectum, anus and anal canal (principal); F17.210 Nicotine dependence, cigarettes, uncomplicated; Z79.899 Other long term (current) drug therapy

== ENCOUNTER → 2025-09-09 | Outpatient (RCR) | payer MEDICARE, OTHER ==
[~2025-09-09] MED LIST changes: +LIDO30CR18 TOP; +ONDA-84 PO; +ZOLP-532 PO
== END ==
LOC: M ONCR 08-30 10:56
PROVIDERS: ATTEND General Practice
DX: Z51.0 Encounter for antineoplastic radiation therapy (principal); C21.8 Malignant neoplasm of overlapping sites of rectum, anus and anal canal

== ENCOUNTER → 2025-09-12 | Outpatient (CLI) | payer MEDICARE, OTHER | LOC: M PLARAD 07:31 | PROVIDERS: ATTEND Internal Medicine | DX: C21.1 Malignant neoplasm of anal canal (principal) ==

== ENCOUNTER 2025-09-21 12:00 | Inpatient (IN) | payer MEDICARE, OTHER ==
[~2025-09-21] VITALS: Ht 160 cm; Wt 76.6 kg
[~2025-09-21 12:00] MED LIST changes: +LIDO15SO8 PO
[2025-09-21 12:50] LABS: BASO # 0.0 10^3/uL (0.0-0.2); BASO % 1.4 % (0.0-1.0); EOS # 0.0 10^3/uL (0.0-0.5); EOS % 4.1 % (0.0-3.0); LYMPH # 0.2 10^3/uL (1.5-5.0); LYMPH % 31.5 % (24.0-44.0); MONO # 0.1 10^3/uL (0.0-0.8); MONO % 6.8 % (2.0-8.0); NEUTROPHILS % 54.8 % (36.0-66.0)
[2025-09-21 12:53] LABS: NEUTROPHILS # 0.4 10^3/uL (1.5-8.5); PLATELET COUNT, AUTOMATED 81 10^3/uL (150-450)
[2025-09-21 13:09] LABS: INR 1.11
[2025-09-21 13:14] LABS: CPK CREATINE PHOSPHOKINASE 15 U/L (34-145)
[2025-09-21 13:15] LABS: ALT/SGPT < 9 U/L (7.0-40); AST/SGOT 9 U/L (<34); CALCIUM LEVEL 7.6 MG/DL (8.3-10.6); CARBON DIOXIDE LEVEL 23 MMOL/L (20-31); CHLORIDE LEVEL 104 MMOL/L (98-107); CK-MB VALUE MASS < 1.0 NG/ML (<3.6); CREATININE FOR GFR 1.62 MG/DL (0.55-1.30); GLOMERULAR FILTRATION RATE 34.8 (>45); POTASSIUM SERUM 4.0 MMOL/L (3.5-5.1); SODIUM LEVEL 133 MMOL/L (136-145)
[2025-09-21] MEDS ORDERED: ISOVUE-370 76% 100 ML VIAL As Ordered ONE (13:30)
[2025-09-21] MEDS: PIPERACILLIN/TAZOBACTAM SOD 4.5 GM in DEXTROSE 5% (D5W) ADV/MINI-BAG 50 ML IV ONE (13:31)
[2025-09-21] MEDS: ACETAMINOPHEN 325 MG TAB PO ONE (13:31)
[2025-09-21] MEDS: NS 500 ML IV ONE ×2 (13:32→15:15)
[2025-09-21 13:33] LABS: KETONE, URINE AUTO RFX NEGATIVE (NEGATIVE); LEUKOCYTE ESTERASE UR AUTO RFX NEGATIVE (NEGATIVE); MUCUS, URINE RFX SMALL (NEGATIVE); NITRITE, URINE AUTO RFX NEGATIVE (NEGATIVE); RBC, URINE AUTO RFX 0 /HPF (0-3); SQUAM EPITHELIAL CELL UR AURFX 0 /HPF (0-6); WBC, URINE AUTO RFX 1 /HPF (0-3)
[2025-09-21] MEDS ORDERED: OXYC-517 PO (13:38)
[2025-09-21] MEDS ORDERED: HOME MED LIST COMPLETE! XX SCH (13:40)
[2025-09-21 14:16] LABS: CK-MB VALUE MASS < 1.0 NG/ML (<3.6)
[2025-09-21 14:18] LABS: CPK CREATINE PHOSPHOKINASE 16 U/L (34-145)
[2025-09-21] MEDS: VANCOMYCIN HCL 1,000 MG, VIAL MATE ADAPTER 1 EACH in NS 250 ML IV ONE (14:54)
[2025-09-21] MEDS: LR 1,000 ML IV SCH (15:30)
[2025-09-21] MEDS ORDERED: NYSTATIN 100,000 UNITS/GM TOPICAL PWD 15 GM TOP PRN (15:35)
[2025-09-21] MEDS ORDERED: LIDOCAINE/PRILOCAINE CREAM 5 GM TUBE TOP PRN (15:35)
[2025-09-21] MEDS ORDERED: LIDOCAINE/PRILOCAINE CREAM 5 GM TUBE TOP SCH (15:35)
[2025-09-21] MEDS ORDERED: ONDANSETRON 4MG TAB PO PRN (15:35)
[2025-09-21 16:55] VITALS: BP 116/58; TEMP 99.4; O2SAT 96
[2025-09-21] MEDS: MORPHINE 4 MG/ML 1 ML VIAL IV PRN (17:18)
[2025-09-21] MEDS: ACETAMINOPHEN 325 MG TAB PO PRN (18:17)
[2025-09-21] MEDS: DIAPER RELIEF PASTE 60 GM TOP SCH (18:19)
[2025-09-21 20:46] VITALS: BP 98/44; TEMP 100.1; O2SAT 92
[2025-09-21] MEDS: PIPERACILLIN/TAZOBACTAM SOD 3.375 GM in DEXTROSE 5% (D5W) ADV/MINI-BAG 50 ML IV SCH (21:03)
[2025-09-21] MEDS: HEPARIN SOD 5000 UNITS/ML 1 ML VIAL/SYRINGE SC SCH (21:04)
[2025-09-21] MEDS: MORPHINE SULFATE TAB EXT REL 15 MG PO SCH (21:06)
[2025-09-21] MEDS ORDERED: NICOTINE 7 MG/24 HR TRANSDERMAL TD PRN (21:30)
[2025-09-22] MEDS: MAGIC MOUTHWASH 5 ML ORAL SYRINGE SSP PRN (00:14)
[2025-09-22 00:47] VITALS: BP 91/45; TEMP 99.1; O2SAT 92
[2025-09-22 06:02] LABS: PLATELET COUNT, AUTOMATED 45 10^3/uL (150-450)
[2025-09-22 06:17] LABS: CALCIUM LEVEL 7.7 MG/DL (8.3-10.6); CARBON DIOXIDE LEVEL 23.0 MMOL/L (20-31); CHLORIDE LEVEL 108.0 MMOL/L (98-107); CREATININE FOR GFR 1.63 MG/DL (0.55-1.30); GLOMERULAR FILTRATION RATE 34.6 (>45); POTASSIUM SERUM 3.6 MMOL/L (3.5-5.1); SODIUM LEVEL 137.0 MMOL/L (136-145)
[2025-09-22 06:19] VITALS: BP 111/60; TEMP 98.1; O2SAT 92
[2025-09-22] MEDS: SERTRALINE 100 MG TAB PO SCH (08:44)
[2025-09-22] MEDS: CETIRIZINE 10 MG TAB PO SCH (08:46)
[2025-09-22] MEDS: OMEPRAZOLE 20MG CAP PO SCH (08:46)
[2025-09-22 10:00] VITALS: BP 102/49; TEMP 98.3; O2SAT 96
[2025-09-22] MEDS ORDERED: MORPHINE 4 MG/ML 1 ML VIAL IV PRN (12:00)
[2025-09-22] MEDS: PIPERACILLIN/TAZOBACTAM SOD 3.375 GM in DEXTROSE 5% (D5W) ADV/MINI-BAG 50 ML IV SCH (12:25)
[2025-09-22 14:00] VITALS: TEMP 98.6; O2SAT 88
[2025-09-22] MEDS ORDERED: PIPERACILLIN/TAZOBACTAM SOD 4.5 GM in DEXTROSE 5% (D5W) ADV/MINI-BAG 50 ML IV SCH (14:00)
[2025-09-22 18:00] VITALS: BP 110/54; TEMP 101.9; O2SAT 90
[2025-09-22] MEDS: METAMUCIL PACKET PO SCH (20:11)
[2025-09-22 20:37] VITALS: BP 96/46; TEMP 98.6; O2SAT 92
[2025-09-22] MEDS: MORPHINE 4 MG/ML 1 ML VIAL IV PRN (22:29)
[2025-09-23 00:41] VITALS: BP 94/44; TEMP 97.9; O2SAT 90
[2025-09-23 06:14] LABS: PLATELET COUNT, AUTOMATED 32 10^3/uL (150-450)
[2025-09-23 06:26] LABS: CALCIUM LEVEL 7.5 MG/DL (8.3-10.6); CARBON DIOXIDE LEVEL 24 MMOL/L (20-31); CHLORIDE LEVEL 108 MMOL/L (98-107); CREATININE FOR GFR 1.70 MG/DL (0.55-1.30); GLOMERULAR FILTRATION RATE 32.9 (>45); POTASSIUM SERUM 3.6 MMOL/L (3.5-5.1); SODIUM LEVEL 138 MMOL/L (136-145)
[2025-09-23 06:28] VITALS: BP 94/46; TEMP 97.9; O2SAT 93
[2025-09-23 09:24] LABS: ALT/SGPT < 9 U/L (7.0-40); AST/SGOT 14 U/L (<34)
[2025-09-23] MEDS: FILGRASTIM 300 MCG/0.5 ML SYRINGE **SC ADMINISTRATION ONLY SC SCH (11:40)
[2025-09-23 12:26] LABS: BASO # 0.0 10^3/uL (0.0-0.2); BASO % 0.0 % (0.0-1.0); EOS # 0.0 10^3/uL (0.0-0.5); EOS % 6.5 % (0.0-3.0); LYMPH # 0.2 10^3/uL (1.5-5.0); LYMPH % 43.5 % (24.0-44.0); MONO # 0.1 10^3/uL (0.0-0.8); MONO % 21.7 % (2.0-8.0); NEUTROPHILS % 26.1 % (36.0-66.0)
[2025-09-23 12:27] LABS: NEUTROPHILS # 0.1 10^3/uL (1.5-8.5)
[2025-09-23 14:00] VITALS: BP 107/59; TEMP 97.6; O2SAT 92
[2025-09-23 20:10] VITALS: BP 111/56; TEMP 98.7; O2SAT 92
[2025-09-24] MEDS: FILGRASTIM 300 MCG/0.5 ML SYRINGE **SC ADMINISTRATION ONLY SC SCH (01:23)
[2025-09-24 05:38] VITALS: BP 115/53; TEMP 97.9; O2SAT 92
[2025-09-24 06:28] LABS: BASO # 0.0 10^3/uL (0.0-0.2); BASO % 0.9 % (0.0-1.0); EOS # 0.0 10^3/uL (0.0-0.5); EOS % 3.6 % (0.0-3.0); LYMPH # 0.3 10^3/uL (1.5-5.0); LYMPH % 29.5 % (24.0-44.0); MONO # 0.1 10^3/uL (0.0-0.8); MONO % 12.5 % (2.0-8.0); NEUTROPHILS % 35.6 % (36.0-66.0)
[2025-09-24 06:31] LABS: PLATELET COUNT, AUTOMATED 23 10^3/uL (150-450)
[2025-09-24 06:32] LABS: NEUTROPHILS # 0.4 10^3/uL (1.5-8.5)
[2025-09-24 06:54] LABS: CALCIUM LEVEL 7.5 MG/DL (8.3-10.6); CARBON DIOXIDE LEVEL 25.0 MMOL/L (20-31); CHLORIDE LEVEL 109.0 MMOL/L (98-107); CREATININE FOR GFR 1.63 MG/DL (0.55-1.30); GLOMERULAR FILTRATION RATE 34.6 (>45); POTASSIUM SERUM 3.4 MMOL/L (3.5-5.1); SODIUM LEVEL 140.0 MMOL/L (136-145)
[2025-09-24] MEDS ORDERED: SILVER SULFADIAZINE 1% CR 50 GM JAR TOP PRN (09:00)
[2025-09-24 12:47] VITALS: BP 107/51; TEMP 98.6; O2SAT 91
[2025-09-24 18:01] VITALS: BP 111/55; TEMP 99.3; O2SAT 93
[2025-09-24 18:21] VITALS: BP 135/63; TEMP 98.9; O2SAT 95
[2025-09-24 19:06] VITALS: BP 135/63; TEMP 98.9; O2SAT 95
[2025-09-24 20:42] VITALS: BP 119/56; TEMP 98.7
[2025-09-25 05:58] VITALS: BP 124/57; TEMP 98.2; O2SAT 92
[2025-09-25 06:18] LABS: BASO # 0.0 10^3/uL (0.0-0.2); BASO % 0.7 % (0.0-1.0); EOS # 0.1 10^3/uL (0.0-0.5); EOS % 1.7 % (0.0-3.0); LYMPH # 0.5 10^3/uL (1.5-5.0); LYMPH % 15.1 % (24.0-44.0); MONO # 0.4 10^3/uL (0.0-0.8); MONO % 12.4 % (2.0-8.0); NEUTROPHILS # 1.6 10^3/uL (1.5-8.5); NEUTROPHILS % 54.7 % (36.0-66.0)
[2025-09-25 06:21] LABS: PLATELET COUNT, AUTOMATED 20 10^3/uL (150-450)
[2025-09-25 06:40] LABS: CALCIUM LEVEL 7.6 MG/DL (8.3-10.6); CARBON DIOXIDE LEVEL 26.0 MMOL/L (20-31); CHLORIDE LEVEL 109.0 MMOL/L (98-107); CREATININE FOR GFR 1.48 MG/DL (0.55-1.30); GLOMERULAR FILTRATION RATE 38.8 (>45); POTASSIUM SERUM 3.3 MMOL/L (3.5-5.1); SODIUM LEVEL 141.0 MMOL/L (136-145)
[2025-09-25 08:53] LABS: MAGNESIUM LEVEL 1.0 MG/DL (1.8-2.4)
[2025-09-25] MEDS: POTASSIUM CHLORIDE 10MEQ SR TABLET PO SCH (08:57)
[2025-09-25 11:54] VITALS: BP 128/61; TEMP 98.3; O2SAT 95
[2025-09-25 14:00] VITALS: BP 136/58; TEMP 98.2; O2SAT 94
[2025-09-25 20:00] VITALS: BP 106/53; TEMP 97.9; O2SAT 93
[2025-09-26] MEDS: ACETAMINOPHEN *IV* 1,000 MG in IV 1 EA IV ONE (00:51)
[2025-09-26 05:53] VITALS: BP 138/57; TEMP 98; O2SAT 94
[2025-09-26 06:36] LABS: BASO # 0.0 10^3/uL (0.0-0.2); BASO % 0.6 % (0.0-1.0); EOS # 0.1 10^3/uL (0.0-0.5); EOS % 2.5 % (0.0-3.0); LYMPH # 0.6 10^3/uL (1.5-5.0); LYMPH % 19.4 % (24.0-44.0); MONO # 0.4 10^3/uL (0.0-0.8); MONO % 11.3 % (2.0-8.0); NEUTROPHILS # 1.8 10^3/uL (1.5-8.5); NEUTROPHILS % 54.9 % (36.0-66.0)
[2025-09-26 06:41] LABS: PLATELET COUNT, AUTOMATED 23 10^3/uL (150-450)
[2025-09-26 06:55] LABS: CALCIUM LEVEL 7.9 MG/DL (8.3-10.6); CARBON DIOXIDE LEVEL 26.0 MMOL/L (20-31); CHLORIDE LEVEL 111.0 MMOL/L (98-107); CREATININE FOR GFR 1.54 MG/DL (0.55-1.30); GLOMERULAR FILTRATION RATE 37.0 (>45); POTASSIUM SERUM 4.1 MMOL/L (3.5-5.1); SODIUM LEVEL 143.0 MMOL/L (136-145)
[2025-09-26 08:00] VITALS: BP 124/62; TEMP 98.7; O2SAT 95
[2025-09-26] MEDS: MAG SULF 1GM/100ML (MAG RUN) 1 GM in IV 1 EA IV SCH (08:11)
[2025-09-26 09:12] VITALS: BP 138/68; TEMP 98; O2SAT 94
[2025-09-26 14:00] VITALS: BP 122/58; TEMP 98; O2SAT 94
[2025-09-26 18:00] VITALS: BP 143/65; TEMP 98.2; O2SAT 94
[2025-09-26 21:32] VITALS: BP 128/61; TEMP 98.6; O2SAT 93
[2025-09-27 00:34] VITALS: BP 128/60; TEMP 98.1; O2SAT 91
[2025-09-27 06:33] VITALS: BP 126/60; TEMP 98.1; O2SAT 93
[2025-09-27 07:42] LABS: BASO # 0.0 10^3/uL (0.0-0.2); BASO % 0.3 % (0.0-1.0); EOS # 0.1 10^3/uL (0.0-0.5); EOS % 3.4 % (0.0-3.0); LYMPH # 0.5 10^3/uL (1.5-5.0); LYMPH % 16.6 % (24.0-44.0); MONO # 0.3 10^3/uL (0.0-0.8); MONO % 10.5 % (2.0-8.0); NEUTROPHILS # 1.7 10^3/uL (1.5-8.5); NEUTROPHILS % 58.7 % (36.0-66.0)
[2025-09-27 07:48] LABS: PLATELET COUNT, AUTOMATED 22 10^3/uL (150-450)
[2025-09-27 07:55] LABS: CALCIUM LEVEL 8.0 MG/DL (8.3-10.6); CARBON DIOXIDE LEVEL 24.0 MMOL/L (20-31); CHLORIDE LEVEL 112.0 MMOL/L (98-107); CREATININE FOR GFR 1.44 MG/DL (0.55-1.30); GLOMERULAR FILTRATION RATE 40.1 (>45); MAGNESIUM LEVEL 1.4 MG/DL (1.8-2.4); POTASSIUM SERUM 3.8 MMOL/L (3.5-5.1); SODIUM LEVEL 143.0 MMOL/L (136-145)
[2025-09-27] MEDS: MAG SULF 1GM/100ML (MAG RUN) 1 GM in IV 1 EA IV SCH (09:11)
[2025-09-27 10:00] VITALS: BP 140/65; TEMP 96.9; O2SAT 96
[2025-09-27 14:00] VITALS: BP 154/69; TEMP 98.1; O2SAT 97
[2025-09-27 18:00] VITALS: TEMP 97.9; O2SAT 99
[2025-09-27 21:03] VITALS: BP 121/59; TEMP 97.3; O2SAT 93
[2025-09-28] VITALS (7 sets, daily range): BP systolic 106–154; BP diastolic 51–70; TEMP 97.9–98.4; O2SAT 92–96
[2025-09-28 07:17] LABS: BASO # 0.0 10^3/uL (0.0-0.2); BASO % 0.3 % (0.0-1.0); EOS # 0.1 10^3/uL (0.0-0.5); EOS % 2.6 % (0.0-3.0); LYMPH # 0.6 10^3/uL (1.5-5.0); LYMPH % 18.9 % (24.0-44.0); MONO # 0.3 10^3/uL (0.0-0.8); MONO % 9.9 % (2.0-8.0); NEUTROPHILS # 1.7 10^3/uL (1.5-8.5); NEUTROPHILS % 56.7 % (36.0-66.0)
[2025-09-28 07:20] LABS: PLATELET COUNT, AUTOMATED 26 10^3/uL (150-450)
[2025-09-28 07:44] LABS: CALCIUM LEVEL 8.0 MG/DL (8.3-10.6); CARBON DIOXIDE LEVEL 25.0 MMOL/L (20-31); CHLORIDE LEVEL 111.0 MMOL/L (98-107); CREATININE FOR GFR 1.38 MG/DL (0.55-1.30); GLOMERULAR FILTRATION RATE 42.2 (>45); MAGNESIUM LEVEL 1.7 MG/DL (1.8-2.4); POTASSIUM SERUM 3.8 MMOL/L (3.5-5.1); SODIUM LEVEL 142.0 MMOL/L (136-145)
[2025-09-28] MEDS: MAG SULF 1GM/100ML (MAG RUN) 1 GM in IV 1 EA IV SCH ×2 (10:43→14:29)
[2025-09-28] MEDS: METOPROLOL SUCC. 100 MG *XL* TAB PO SCH (15:43)
[2025-09-29 06:57] VITALS: BP 114/56; TEMP 97.5; O2SAT 91
[2025-09-29 07:13] LABS: BASO # 0.0 10^3/uL (0.0-0.2); BASO % 0.3 % (0.0-1.0); EOS # 0.1 10^3/uL (0.0-0.5); EOS % 2.2 % (0.0-3.0); LYMPH # 0.7 10^3/uL (1.5-5.0); LYMPH % 18.5 % (24.0-44.0); MONO # 0.4 10^3/uL (0.0-0.8); MONO % 10.4 % (2.0-8.0); NEUTROPHILS # 2.1 10^3/uL (1.5-8.5); NEUTROPHILS % 59.0 % (36.0-66.0)
[2025-09-29 07:19] LABS: PLATELET COUNT, AUTOMATED 31 10^3/uL (150-450)
[2025-09-29 08:00] VITALS: BP 138/62; TEMP 98; O2SAT 96
[2025-09-29 08:11] LABS: CALCIUM LEVEL 8.4 MG/DL (8.3-10.6); CARBON DIOXIDE LEVEL 26.0 MMOL/L (20-31); CHLORIDE LEVEL 112.0 MMOL/L (98-107); CREATININE FOR GFR 1.45 MG/DL (0.55-1.30); GLOMERULAR FILTRATION RATE 39.8 (>45); MAGNESIUM LEVEL 1.9 MG/DL (1.8-2.4); POTASSIUM SERUM 4.2 MMOL/L (3.5-5.1); SODIUM LEVEL 143.0 MMOL/L (136-145)
[2025-09-29 09:27] VITALS: BP 138/62
[2025-09-29 10:48] VITALS: BP 132/62; TEMP 97.9; O2SAT 94
[2025-09-29] MEDS ORDERED: FLUCONAZOLE 50 MG TABLET PO ONE ×2 (13:45→16:00)
[2025-09-29] MEDS ORDERED: METR-265 PO (14:09)
[2025-09-29] MEDS ORDERED: CIPR500T39 PO (14:09)
[2025-09-29 14:38] VITALS: BP 149/62; TEMP 97.9; O2SAT 93
[2025-09-29] MEDS ORDERED: CIPROFLOXACIN 500 MG TABLET PO SCH (18:00)
== END 2025-09-29 15:05 | disposition home or self-care (01) | DRG 871 ==
LOC: M ED 12:00 → M ED INP 15:29 → M MS5PR 17:00
PROVIDERS: ADMIT Student in an Organized Health Care Education/Training Program; ATTEND Student in an Organized Health Care Education/Training Program
PROC: 30233N1 Transfusion of Nonautologous Red Blood Cells into Peripheral Vein, Percutaneous Approach (ICD-10-PCS; principal; 2025-09-24)
DX: A41.9 Sepsis, unspecified organism (principal); D61.810 Antineoplastic chemotherapy induced pancytopenia; C21.0 Malignant neoplasm of anus, unspecified; K57.32 Diverticulitis of large intestine without perforation or abscess without bleeding; F39 Unspecified mood [affective] disorder; I12.9 Hypertensive chronic kidney disease with stage 1 through stage 4 chronic kidney disease, or unspecified chronic kidney disease; N18.9 Chronic kidney disease, unspecified; E78.5 Hyperlipidemia, unspecified; R19.7 Diarrhea, unspecified; R53.81 Other malaise; G89.3 Neoplasm related pain (acute) (chronic); K21.9 Gastro-esophageal reflux disease without esophagitis; M10.9 Gout, unspecified; F17.210 Nicotine dependence, cigarettes, uncomplicated; G47.33 Obstructive sleep apnea (adult) (pediatric); R53.1 Weakness; K62.89 Other specified diseases of anus and rectum; B96.20 Unspecified Escherichia coli [E. coli] as the cause of diseases classified elsewhere; Z92.3 Personal history of irradiation; Z92.21 Personal history of antineoplastic chemotherapy; Z88.8 Allergy status to other drugs, medicaments and biological substances; Z79.899 Other long term (current) drug therapy; L25.3 Unspecified contact dermatitis due to other chemical products

== ENCOUNTER 2025-10-05 11:18 | Outpatient (RCR) | payer MEDICARE, OTHER | END 2025-10-09 | LOC: M ONCR 11:18 | PROVIDERS: ATTEND General Practice | DX: Z51.0 Encounter for antineoplastic radiation therapy (principal); C21.8 Malignant neoplasm of overlapping sites of rectum, anus and anal canal ==

== ENCOUNTER → 2025-10-05 | Outpatient (CLI) | payer MEDICARE ==
[~2025-10-05] MED LIST changes: +CIPR500T39 PO; +OXYC-517 PO
[2025-10-05 12:45] LABS: BASO # 0.0 10^3/uL (0.0-0.2); BASO % 0.3 % (0.0-1.0); EOS # 0.0 10^3/uL (0.0-0.5); EOS % 0.1 % (0.0-3.0); LYMPH # 0.9 10^3/uL (1.5-5.0); LYMPH % 12.2 % (24.0-44.0); MONO # 0.8 10^3/uL (0.0-0.8); MONO % 10.1 % (2.0-8.0); NEUTROPHILS # 5.7 10^3/uL (1.5-8.5); NEUTROPHILS % 76.1 % (36.0-66.0); PLATELET COUNT, AUTOMATED 268 10^3/uL (150-450)
[2025-10-05 13:08] LABS: ALT/SGPT 10 U/L (7.0-40); AST/SGOT 33 U/L (<34); CALCIUM LEVEL 9.1 MG/DL (8.3-10.6); CARBON DIOXIDE LEVEL 27 MMOL/L (20-31); CHLORIDE LEVEL 107 MMOL/L (98-107); CHOLESTEROL LEVEL 174 MG/DL (<200); CHOLESTEROL RISK RATIO 9.06 (<5); CREATININE FOR GFR 1.71 MG/DL (0.55-1.30); GLOMERULAR FILTRATION RATE 32.6 (>45); NON-HDL-C 154.8 MG/DL; POTASSIUM SERUM 4.7 MMOL/L (3.5-5.1); SODIUM LEVEL 143 MMOL/L (136-145); TRIGLYCERIDES LEVEL 437 MG/DL (<150)
[2025-10-05 13:20] LABS: ESTIMATED AVERAGE GLUCOSE 114.0 MG/DL (60-110)
== END ==
LOC: M WUC 08:41
PROVIDERS: ATTEND Nurse Practitioner Family
DX: I10 Essential (primary) hypertension (principal); E78.2 Mixed hyperlipidemia; R73.03 Prediabetes; M10.9 Gout, unspecified; R50.9 Fever, unspecified

== ENCOUNTER 2025-10-28 11:24 | Outpatient (RCR) | payer MEDICARE, OTHER ==
[~2025-10-28 11:24] MED LIST changes: +COLC0.6T53 PO; +LIDO5TD TOP; +MAGN400T2 PO; +OXYC-1 PO
[2025-11-01] MEDS ORDERED: DIPH1TAB81 PO (15:13)
[2025-11-01] MEDS ORDERED: LOMO2.5T PO (15:13)
[2025-11-01] MEDS ORDERED: MORP30TASA PO (15:13)
== END 2025-11-09 ==
LOC: M ONCR 11:24
PROVIDERS: ATTEND General Practice
DX: Z51.0 Encounter for antineoplastic radiation therapy (principal); C21.8 Malignant neoplasm of overlapping sites of rectum, anus and anal canal

== ENCOUNTER → 2025-11-01 | Outpatient (CLI) | payer MEDICARE, OTHER ==
[~2025-11-01] MED LIST changes: +DIPH1TAB81 PO; +LOMO2.5T PO; +MORP30TASA PO
== END ==
LOC: M ONCR 15:05
PROVIDERS: ATTEND General Practice
DX: L59.8 Other specified disorders of the skin and subcutaneous tissue related to radiation (principal); K52.9 Noninfective gastroenteritis and colitis, unspecified; K62.9 Disease of anus and rectum, unspecified; Z79.891 Long term (current) use of opiate analgesic